=== PATIENT | female | born 1935 | race Caucasian/White ===

== ENCOUNTER 2019-04-04 14:01 | Emergency (ER) | payer MEDICARE, SELFPAY ==
[2019-04-04 14:07] VITALS: PULSE 73; RESP 30; TEMP 36.5; O2SAT 97
--- NOTE | 2019-04-04 14:15 | ECG_ITS ---
Measurements Intervals [place] Rate: 69 P: 35 VT: 160 QRS: -17 QRSD: 89 T: 11 QT: 396 QTc: 426 Interpretive Statements SINUS RHYTHM CANNOT RULE OUT SEPTAL INFARCT, AGE INDETERMINATE BASELINE ARTIFACT- I, III ABNORMAL ECG Electronically Signed On 04-04-2019 19:40:24 FARM LOAN REPRESENTATIVE by Akil De Oliveira D.O.
--- NOTE | 2019-04-04 14:23 | ED.DIZZY ---
HPI - Dizziness General Chief Complaint: Dizziness Stated Complaint: dizzy Time Seen by Provider: 04/04/19 14:19 Source: patient Mode of arrival: ambulatory Limitations: no limitations History of Present Illness HPI Narrative: Pt is an 83 y/o female who presents to the ED with c/o dizziness that started at 10AM. Pt states that she has a H/o vertigo and is Rx Meclizine. She notes that normally when her dizziness starts it is alleviated with the meclizine. Today, she took her meclizine at 10AM with no relief. She notes that the room is spinning. Pt states that her dizziness is aggravated when she moves her head and it is alleviated when her head is still. Pt denies RUELAS, nausea, ABD pain, CP, or chest discomfort. MD elicited complaint: dizziness Pertinent past history: other (vertigo) Onset (ago): hour(s) (4) Timing: sudden onset Severity: similar to previous episodes Description: room spinning History of similar symptoms: Yes Exacerbating factors: movement/ambulation Relieving factors: remaining still Associated symptoms: denies other symptoms Related Data Home Medications Medication Instructions Recorded Confirmed alprazolam 01/26/19 citalopram mg 01/26/19 lamotrigine 01/26/19 meclizine mg 01/26/19 Allergies Allergy/AdvReac Type Severity Reaction Status Date / Time ibuprofen Allergy Unknown Unknown Verified 01/26/19 17:17 ALLERGY MEDICINES Allergy Unknown SENSITIVITY Uncoded 01/10/14 10:34 Review of Systems Review of Systems: All systems reviewed & are unremarkable except as noted in HPI and below Cardiovascular: Cardiovascular: Denies chest pain and Denies other (chest discomfort) Gastrointestinal: Gastrointestinal: Denies abdominal pain and Denies nausea Neurologic: Reports vertigo, Reports dizziness and Denies headache(s) PMFSH Past Medical History Medical History Anxiety Depression Hypoglycemia Vertigo Surgical History Surgical History Hx of tympanostomy tubes Social History Social History Smoking status: Never smoker Alcohol intake: never Substance use: never Gender identity (if verbalized by the patient): Female Exam Narrative: Exam Narrative: GENERAL: Well-appearing, well-nourished, and in no acute distress. HEAD: Normocephalic, atraumatic. EYES: PERRLA and EOMI. ENT: Nares clear, no rhinorrhea or epistaxis. Mucous membranes moist. NECK: Supple. CHEST: Clear to auscultation. No respiratory distress. HEART: Regular rate and rhythm. No murmur heard. Normal peripheral pulses. ABDOMEN: Soft, nontender, nondistended, normal active bowel sounds. EXTREMITIES: Normal range of motion. No edema. SKIN: Warm, dry, no rash. NEURO: No focal deficits. Alert and oriented x3. PSYCH: Normal mood and affect. Course Course Emergency Course: Patient states she is feeling slightly better her dizziness has markedly improved, I discussed lab and EKG findings with the patient and the family. She does feel comfortable going home. Vital Signs Vital signs: Vital Signs Temperature 36.5 C 04/04/19 14:07 Pulse Rate 73 04/04/19 14:07 Respiratory Rate 30 H 04/04/19 14:07 Pulse Oximetry 97 04/04/19 14:07 Temperature 36.5 C 04/04/19 14:07 Pulse Rate 73 04/04/19 14:07 Respiratory Rate 30 H 04/04/19 14:07 Pulse Oximetry 97 04/04/19 14:07 MDM - Dizziness Lab Data Result diagrams: 04/04/19 14:34 04/04/19 14:34 Labs: Lab Results 04/04/19 04/04/19 Range/Units 14:34 14:34 WBC 7.0 (4.5-10.0) K/mm3 RBC 4.55 (4.2-5.4) M/mm3 Hgb 13.1 (12.0-15.0) g/dL Hct 41.6 (37.0-47.0) % MCV 91.4 (80-100) fl MCH 28.8 (26-34) pg MCHC 31.5 L (32-36) g/dl RDW 13.2 (11.5-14.5) % Plt Count 196 (150-375) k/mm3 MPV 10.7 H (7.4-10.4) fl Immature Gran % (Auto) 0.1 (0-
[2019-04-04 14:42] LABS: Basophils Percent Auto 0.6 % (0.2-1.2); Eosinophils Absolute Auto 0.2 K/mm3 (0-0.3); Eosinophils Percent Auto 2.6 % (0-4.4); Hematocrit 41.6 % (37.0-47.0); Hemoglobin 13.1 g/dL (12.0-15.0); Immature Granulocyte Absolute 0.01 K/mm3 (0.00-0.031); Immature Granulocyte Percent A 0.1 % (0-0.5); Lymphocytes Absolute Auto 2.35 K/mm3 (0.9-3.2); Lymphocytes Percent Auto 33.6 % (18.3-44.2); Mean Corpuscular HGB Conc 31.5 g/dl (32-36); Mean Corpuscular Hemoglobin 28.8 pg (26-34); Mean Corpuscular Volume 91.4 fl (80-100); Mean Platelet Volume 10.7 fl (7.4-10.4); Monocytes Absolute Auto 0.5 K/mm3 (0.1-0.6); Monocytes Percent Auto 6.7 % (2.6-8.5); Neutrophils Absolute Auto 3.9 K/mm3 (1.3-6.7); Neutrophils Percent Auto 56.4 % (45.5-73.1); Platelet Count Result 196 k/mm3 (150-375); Red Blood Count 4.55 M/mm3 (4.2-5.4); Red Cell Distribution Width 13.2 % (11.5-14.5)
[2019-04-04] MEDS: SODIUM CHLORIDE 0.9% IV 1,000 ML 999 ML IV CONT (14:44)
[2019-04-04 14:53] LABS: Blood Urea Nitrogen 22 mg/dL (7-17); Calcium 9.2 mg/dL (8.4-10.2); Carbon Dioxide 25 mmol/L (22-30); Chloride 99 mmol/L (98-107); Estimated CRCL calculation 37 ml/min; Estimated Glomerular Filt Rate 60; Glucose 100 mg/dL (65-105); Potassium 4.1 mmol/L (3.4-5.0); Sodium 136 mmol/L (137-145)
[2019-04-04] MEDS: LORAZEPAM INJ 2 MG/ML VIAL 0.5 MG IV PUSH (15:03)
[2019-04-04] MEDS: MECLIZINE HCL 25 MG TABLET PO (15:03)
[2019-04-04 15:05] LABS: Troponin I < 0.012 ng/mL (0.000-0.034)
== END 2019-04-04 15:50 | disposition home or self-care (01) ==
PROVIDERS: Emergency Provider Family Medicine; PCP Family Medicine
DX: H81.10 Benign paroxysmal vertigo, unspecified ear (principal); F41.9 Anxiety disorder, unspecified; F32.9 Major depressive disorder, single episode, unspecified; R94.31 Abnormal electrocardiogram [ECG] [EKG]
CPT/HCPCS: 36415; 80048; 84484; 85025; 93005; 96361; 96374; 99284; A9270; J2060; J7030

== ENCOUNTER 2019-09-16 10:07 | Emergency (ER) | payer MEDICARE, SELFPAY ==
--- NOTE | ~2019-09-16 | XR_ITS ---
EXAMINATION: XR foot RT min 3V DATE: 09/16/2019 10:39 INDICATION: Right foot injury and pain. TECHNIQUE: 4 views of right foot were obtained. COMPARISON: Right foot radiographs 09/22/2017 FINDINGS: Bone alignment is normal. There is an old healed fracture deformity of base of fifth metata rsal. There is an avulsion fracture at medial base of fifth middle phalanx. There is an avulsion frac ture at lateral aspect of head of fifth proximal phalanx. There is mild osteoarthritis of first metat arsophalangeal joint and some of the interphalangeal joints and midfoot joints. There is moderate ost eoarthritis of the naviculocuneiform joints and third tarsometatarsal joint. There are enthesophytes at the posterior and plantar aspects of calcaneal tuberosity. IMPRESSION: 1. Avulsion fractures about fifth proximal interphalangeal joint. 2. Polyarticular osteoarthritis. Reviewed, dictated and finalized at location A.
[2019-09-16 10:27] VITALS: BP 109/70; PULSE 84; RESP 18; TEMP 36.6; O2SAT 96
--- NOTE | 2019-09-16 10:49 | ED.LOWEXIN ---
HPI - Extremity Injury (Lower) General Chief Complaint: Extremity Injury, Lower Stated Complaint: right foot injury Time Seen by Provider: 09/16/19 10:49 Source: patient Mode of arrival: ambulatory Limitations: no limitations History of Present Illness HPI Narrative: Joseline Wright is a 84 yo female with PMH of anxiety, depression, arthritis, who [place], no pain at the time but this morning woke up and has right ankle and foot pain Related Data Home Medications Medication Instructions Recorded Confirmed alprazolam 01/26/19 citalopram mg 01/26/19 lamotrigine 01/26/19 meclizine mg 01/26/19 Allergies Allergy/AdvReac Type Severity Reaction Status Date / Time ibuprofen Allergy Unknown Unknown Verified 01/26/19 17:17 ALLERGY MEDICINES Allergy Unknown SENSITIVITY Uncoded 01/10/14 10:34 Review of Systems Review of Systems: Narrative: CONSTITUTIONAL: Denies fever, chills, sweats. EYES: Denies visual changes, redness, discharge. ENT: Denies rhinorrhea, congestion, sore throat, otalgia. CARDIOVASCULAR: Denies chest pain, palpitations, edema. RESPIRATORY: Denies dyspnea, wheezing, cough GASTROINTESTINAL: Denies abdominal pain, nausea, vomiting, diarrhea. GENITOURINARY: Denies dysuria, hematuria, abnormal discharge SKIN: Denies rash or itching. NEUROLOGIC: Denies numbness, or focal weakness. PSYCHIATRIC: Denies anxiety or depression. Extremity: Right bottom of foot painful and swollen PMFSH Past Medical History Medical History Anxiety Depression Hypoglycemia Vertigo Surgical History Surgical History Hx of tympanostomy tubes Social History Social History Smoking status: Never smoker Alcohol intake: never Substance use: never Gender identity (if verbalized by the patient): Female Comments At time of signature, I agree with nursing past medical, surgical, social and family history. There is no relevant family history pertinent to the presenting complaint. Exam Narrative: Exam Narrative: GENERAL: This is a well-nourished, well-developed patient, in mild distress. HEAD: normocephalic, atraumatic. EYES: Sclera clear/white. Vision is grossly intact. EARS: External ears normal, . Hearing grossly intact. NOSE: External nose normal without nasal discharge, THROAT: Mucous membranes moist, NECK: Neck supple, CARDIOVASCULAR: Regular rate and rhythm without murmurs, gallops, or rubs. RESPIRATORY: Clear to auscultation. Breath sounds equal bilaterally. No wheezes, rales, or rhonchi. GASTROINTESTINAL: Abdomen soft, SKIN: warm, intact with no suspicious lesions or rash, good texture and turgor. NEURO: awake, alert, and oriented to person, place and time. There were no obvious focal neurologic abnormalities. Steady gait EXTREMITIES: Normal range of motion. Right foot swelling with no ecchymosis, pain in the forefoot, more pain on solar side of toes and forefoot BACK: Nontender without deformity Course Course Emergency Course: X-ray of right foot: Results are avulsion fracture of fifth proximal interphalangeal joint, polyarticular osteoarthritis Keep toe and placed in postop shoe, Naprosyn for pain, even directions on rice, follow-up with podiatry Vital Signs Vital signs: Vital Signs Temperature 97.8 F 09/16/19 10:27 Pulse Rate 84 09/16/19 10:27 Respiratory Rate 18 09/16/19 10:27 Blood Pressure 109/70 09/16/19 10:27 Pulse Oximetry 96 09/16/19 10:27 Temperature 97.8 F 09/16/19 10:27 Pulse Rate 84 09/16/19 10:27 Respiratory Rate 18 09/16/19 10:27 Blood Pressure 109/70 09/16/19 10:27 Pulse Oximetry 96 09/16/19 10:27 MDM - Extremity Injury (Lower) Differential Diagnosis Differential diagnosis: Likely puncture wound of foot, fracture of toe and other Dis
== END 2019-09-16 11:30 | disposition home or self-care (01) ==
PROVIDERS: Emergency Provider Nurse Practitioner; PCP Family Medicine
DX: S92.511A Displaced fracture of proximal phalanx of right lesser toe(s), initial encounter for closed fracture (principal); W19.XXXA Unspecified fall, initial encounter; F41.9 Anxiety disorder, unspecified; F32.9 Major depressive disorder, single episode, unspecified
CPT/HCPCS: 73630; 99214; G0463

== ENCOUNTER 2019-10-31 09:36 | Emergency (ER) | payer MEDICARE, SELFPAY ==
--- NOTE | ~2019-10-31 | CT_ITS ---
EXAMINATION: CT brain wo con DATE: 10/31/2019 10:32 INDICATION: Head injury. TECHNIQUE: Computed tomography (CT) of the head was performed without intravenous contrast. The mA wa s adjusted according to patient size. Iterative reconstruction technique was employed. The dose-lengt h product was 605.33 mGy-cm. COMPARISON: Head CT 01/10/2014 FINDINGS: There is no intracranial hemorrhage, acute infarction, or abnormal intracranial mass lesion . The ventricles are normal in size. There are likely changes of ocular lens replacement surgeries. T here is mild mucosal thickening in the paranasal sinuses. The mastoid air cells are normal. There is a right posterior scalp hematoma. IMPRESSION: 1. Normal brain. Reviewed, dictated and finalized at location B. IMPRESSION: 1. Normal brain.
--- NOTE | ~2019-10-31 | CT_ITS ---
EXAMINATION: CT cervical spine wo con DATE: 10/31/2019 10:32 INDICATION: Head injury. TECHNIQUE: Computed tomography (CT) of the cervical spine was performed without intravenous contrast. Automated exposure control and iterative reconstruction technique were employed. The dose-length pro duct was 183.23 mGy-cm. COMPARISON: None FINDINGS: There is 2 mm retrolisthesis of C3 on C4. Vertebral body heights are normal. There is sever beverly decreased disc height at C3-C4 and C4-C5, moderately decreased disc height at C5-C6, and severely decreased disc height at C6-C7. There is an 8 mm aggressive lytic lesion in C5 spinous process. Scle rotic lesions in right third rib and right T3 transverse process are likely benign bone islands. The following disc levels are specifically discussed: C2-C3: There is no uncovertebral joint osteoarthritis. There is severe bilateral facet joint osteoart hritis. There is mild bilateral neural foraminal stenosis. There is no central canal stenosis. C3-C4: There is severe bilateral uncovertebral joint osteoarthritis. There is severe right and modera te left facet joint osteoarthritis. There is no neural foraminal stenosis. There is mild central donaldo l stenosis. C4-C5: There is severe bilateral uncovertebral joint osteoarthritis. There is moderate right and mild left facet joint osteoarthritis. There is no neural foraminal stenosis. There is mild central canal stenosis. C5-C6: There is severe right and mild left uncovertebral joint osteoarthritis. There is mild right fa cet joint osteoarthritis. There is mild bilateral neural foraminal stenosis. There is no central donaldo l stenosis. C6-C7: There is severe bilateral uncovertebral joint osteoarthritis. There is mild right and moderate left facet joint osteoarthritis. There is no neural foraminal stenosis. There is no central canal st enosis. C7-T1: There is no uncovertebral joint osteoarthritis. There is severe right and mild left facet join t osteoarthritis. There is no neural foraminal stenosis. There is no central canal stenosis. IMPRESSION: 1. No fracture. 2. Severe cervical spondylosis. 3. Aggressive lytic lesion in C5 transverse process, consistent with multiple myeloma versus metastat ic disease. Reviewed, dictated and finalized at location B. IMPRESSION: 1. No fracture. 2. Severe cervical spondylosis. 3. Aggressive lytic lesion in C5 transverse process, consistent with multiple m yeloma versus metastatic disease.
[2019-10-31 09:47] VITALS: BP 123/75; PULSE 80; RESP 20; TEMP 37.2; O2SAT 96
--- NOTE | 2019-10-31 10:05 | ED.HEATRA ---
HPI - Head Injury General Chief complaint: Head Injury Stated complaint: Fall, Hit Head Time Seen by Provider: 10/31/19 09:43 Source: patient Mode of arrival: ambulatory Limitations: no limitations History of Present Illness HPI Narrative: This patient is an 84 year old female who presents for evaluation of a head injury. PAtient states she was running this morning and she tripped in her house. THis caused her to hit her head on the wall. She denies LOC but she was she was having severe head pain. She reports chronic dizziness. She is worried about having intracranial hemorrhage. She denies taking anticoagulation. Related Data Home Medications Medication Instructions Recorded Confirmed alprazolam 01/26/19 lamotrigine 01/26/19 citalopram 20 mg tablet 20 mg PO DAILY 10/30/19 lamotrigine 25 mg tablet 75 mg PO DAILY 10/30/19 Allergies Allergy/AdvReac Type Severity Reaction Status Date / Time No Known Allergies Allergy Verified 10/31/19 09:50 Review of Systems Review of Systems: All systems reviewed & are unremarkable except as noted in HPI and below Constitutional: Constitutional: Denies chills and Denies fever(s) Neurologic: Reports dizziness, Reports headache(s), Denies focal weakness and Denies numbness PMFSH Social History Social History Smoking status: Never smoker Alcohol intake: never Substance use: never Gender identity (if verbalized by the patient): Female Exam Const: General: alert Orientation/consciousness: patient oriented x3 HENMT: Head: normocephalic and scalp tenderness (right parietal punctate wound with mild bleeding. scalp swelling present) Face and sinus: face symmetric Mouth: Yes lip normal and Yes tongue normal Throat: uvula midline Neck: Other: mild posterior neck tenderness Chest: Chest palpation & inspection: normal inspection of the chest and no tenderness Resp: Effort & Inspection: normal respiratory effort and no retractions Auscultation: clear to auscultation bilaterally Cardio: Rate: regular rate Rhythm: regular rhythm Heart sounds: no murmurs GI: GI Palp: Yes Soft to palpation, No Tenderness to palpation present (GI), No Guarding due to palpation present (GI) and No Rigid due to palpation Neuro: General: patient oriented x3 and moves all extremities Extrem: General: normal to inspection Course Consultations Consultation #1: I discussed CT spine findings with patient and Dr. Parsons. He will follow up with patient regarding lytic lesion. She does have past history of breast cancer s/p mastectomy Date: 10/31/19 Time: 11:16 Vital Signs Vital signs: Vital Signs Temperature 99.0 F 10/31/19 09:47 Pulse Rate 80 10/31/19 09:47 Respiratory Rate 20 10/31/19 09:47 Blood Pressure 123/75 10/31/19 09:47 Pulse Oximetry 96 10/31/19 09:47 Temperature 99.0 F 10/31/19 09:47 Pulse Rate 80 10/31/19 11:54 Respiratory Rate 17 10/31/19 11:54 Blood Pressure 142/84 H 10/31/19 11:54 Pulse Oximetry 98 10/31/19 11:54 MDM - Head Injury Imaging Data Radiologist's impression: ITS Impressions Head CT 10/31/19 10:33 IMPRESSION: 1. Normal brain. Cervical Spine CT 10/31/19 10:35 IMPRESSION: 1. No fracture. 2. Severe cervical spondylosis. 3. Aggressive lytic lesion in C5 transverse process, consistent with multiple myeloma versus metastatic disease. Discharge Plan Discharge Clinical Impression: CHI (closed head injury), Bone lesion Patient Disposition: Home, Self-Care Condition: Stable Instructions: Head Injury (ED) Additional Instructions: Follow up with your primary care physician regarding your abnormal spine lesion. You will need further assessment. Prescriptions: No Action lamotrigine 25 mg tablet RF: 0 alprazolam 0.25 mg tablet RF: 0 lamotrigine 25 mg tablet 75 mg PO DAILY RF: 0 roman
[2019-10-31] MEDS: TETANUS,DIPHTHERIA,AC PERTUSSIS ADULT (0.5 ML) BOOSTRIX IM (11:03)
[2019-10-31 11:54] VITALS: BP 142/84; PULSE 80; RESP 17; O2SAT 98
== END 2019-10-31 12:00 | disposition home or self-care (01) ==
PROVIDERS: Emergency Provider General Practice; PCP Family Medicine
DX: S00.91XA Abrasion of unspecified part of head, initial encounter (principal); M89.9 Disorder of bone, unspecified; M47.812 Spondylosis without myelopathy or radiculopathy, cervical region; W01.0XXA Fall on same level from slipping, tripping and stumbling without subsequent striking against object, initial encounter; Z23 Encounter for immunization
CPT/HCPCS: 70450; 72125; 90471; 90715; 99284

== ENCOUNTER → 2019-11-20 13:52 | Outpatient (CLI) | payer MEDICARE, SELFPAY ==
--- NOTE | ~2019-11-20 | XR_ITS ---
EXAMINATION: XR chest 2V 11/20/2019 14:15 INDICATION: Shortness of breath PROCEDURE: PA and lateral views of the chest COMPARISON: Comparison to multiple prior studies sequentially, with oldest reviewed study dated 11/2004. FINDINGS: The lungs are clear. The lungs are hyperinflated which is consistent with, but not diagnost ic of chronic obstructive pulmonary disease. The cardiomediastinal silhouette is within normal limit s. There are no pleural effusions. There is no pneumothorax suspected. IMPRESSION: 1: NO ACUTE CARDIOPULMONARY DISEASE. Reviewed, dictated and finalized at location B.
== END ==
PROVIDERS: PCP Family Medicine; Visit Provider Family Medicine
DX: R06.02 Shortness of breath (principal)
CPT/HCPCS: 71046

== ENCOUNTER 2019-11-30 10:48 | Outpatient (NON) | payer MEDICARE, SELFPAY ==
[2019-12-01 02:12] LABS: SARS-CoV-2 RNA PCR Negative
== END 2019-11-30 10:49 ==
PROVIDERS: PCP Family Medicine; Visit Provider Family Medicine
DX: R09.89 Other specified symptoms and signs involving the circulatory and respiratory systems (principal); Z20.828 Contact with and (suspected) exposure to other viral communicable diseases
CPT/HCPCS: 87635; C9803; U0003

== ENCOUNTER → 2020-02-25 16:32 | Outpatient (CLI) | payer MEDICARE, SELFPAY ==
--- NOTE | ~2020-02-25 | XR_ITS ---
XR lumbar spine 2-3V 02/25/2020 18:00 Indication: Low back pain Procedure: 3 views lumbar spine Comparison: Findings: There is disc narrowing at L3-4, L4-5 and L5-S1. There are facet degenerative changes at th jase levels. Osteopenia. Stable calcified fibroid in the uterus. There is stable degenerative spondylo listhesis at L4-5. There is mild levocurvature of the brachial lumbar spine. Sacral foramen are symme tric. Impression: 1: Severe lumbar spondylosis without significant interval change. Reviewed, dictated and finalized at location A. DCAST TECHNICIAN Impression: 1: Severe lumbar spondylosis without significant interval change.
== END ==
PROVIDERS: PCP Family Medicine; Visit Provider Family Medicine
DX: M47.896 Other spondylosis, lumbar region (principal)
CPT/HCPCS: 72100

== ENCOUNTER 2020-06-17 16:06 | Outpatient (CLI) | payer MEDICARE, SELFPAY ==
--- NOTE | ~2020-06-17 | XR_ITS ---
XR chest 2V DATE: 06/17/2020 16:26 INDICATION: Shortness of breath, wheezing TECHNIQUE: PA and lateral views COMPARISON: 11/20/2019 PA and lateral chest FINDINGS: Normal heart size. No hilar or mediastinal enlargement. Aortic arch calcification. No pulmonary infiltrate or consolidation, pleural effusion or pulmonary vascular congestion or pneumo thorax. Diffuse osteopenia. Mild thoracic and lumbar scoliosis. Degenerative change of the thoracic spine. Status post left mastectomy and left axillary node dissection. IMPRESSION: Status post left mastectomy and left axillary node dissection Aortic atherosclerosis No active cardiopulmonary disease Diffuse osteopenia Reviewed, dictated and finalized at location A.
--- NOTE | 2020-06-17 16:29 | ECG_ITS ---
Measurements Intervals [place] Rate: 77 P: 53 [place]: 154 QRS: 32 QRSD: 88 T: 31 QT: 383 QTc: 433 Interpretive Statements SINUS RHYTHM FREQUENT VENTRICULAR PREMATURE COMPLEXES ABNORMAL ECG Electronically Signed On 06-17-2020 16:58:11 CDT by Akil De Oliveira D.O.
== END 2020-06-17 16:07 | disposition home or self-care (01) ==
LOC: ANHIMG 16:10
PROVIDERS: PCP Family Medicine; Visit Provider Physician Assistant Medical
DX: I49.9 Cardiac arrhythmia, unspecified (principal); R06.2 Wheezing; I70.0 Atherosclerosis of aorta; M85.88 Other specified disorders of bone density and structure, other site
CPT/HCPCS: 71046; 93005

== ENCOUNTER 2020-06-25 10:38 | Outpatient (CLI) | payer MEDICARE, SELFPAY ==
--- NOTE | 2020-07-08 12:24 | WPDHOLTEREM ---
Holter/Event Monitor Holter/Event Monitor Date of procedure: 07/01/20 Procedure Type: 48 hour holter monitor Indications: PVC Conclusion: 1. 48 hour holter monitor on 07/01/20. 2. Predominant rhythm is sinus rhythm. HR range 67-118 bpm; average HR 86 bpm. 3. There are 56 premature supraventricular complexes and 3 supraventricular couplets. There are 3 episodes of atrial tachycardia, fastest at 167 bpm and longest lasting 5 beats. 4. There are 25,435 premature ventricular complexes, 439 premature ventricular couplets, 2 ventricular triplets, 3,732 ventricular bigeminy and 25 ventricular trigeminy. No ventricular tachycardia. 5. No sinoatrial or atrioventricular blocks. No significant pauses greater than 2 seconds. 6. Patient reports symptoms of shakiness, lightheadedness, and tiredness which demonstrate sinus rhythm, HR range 76-101 bpm with PVC's each time.
== END 2020-06-25 10:39 | disposition home or self-care (01) ==
PROVIDERS: PCP Family Medicine; Visit Provider Physician Assistant Medical
DX: I49.3 Ventricular premature depolarization (principal); I49.9 Cardiac arrhythmia, unspecified
CPT/HCPCS: 93225; 93226

== ENCOUNTER 2020-07-07 14:36 | Outpatient (CLI) | payer MEDICARE, SELFPAY ==
--- NOTE | 2020-07-07 16:40 | WPDPFTINT ---
PFT Procedure Performed PFT Procedure Performed Spirometry with Pre/Post Bronchodilator Plethysmography (Lung Vol) Diffusing Cap (DLCO) Flow Vol Loop PFT Interpretation This is a pulmonary function test with pre and post-bronchodilator spirometry, plethysmography and diffusing capacity. The test was performed and results interpreted in accordance with the 2019 and 2005 ATS/ERS Task Force guidelines respectively using the Global Lung Function Initiative-2012 reference equations. Patient demonstrated good effort and cooperation. Reproducibility criteria were met. The quality of the pre bronchodilator spirometry maneuver was Grade E and post bronchodilator spirometry maneuver was Grade A. Findings: Spirometry: There is decreased maximal expiratory airflow at all lung volumes with concave expiratory flow tracing. The pre bronchodilator FVC is 2.12 L, 86% predicted. The pre bronchodilator FEV1 is 1.29 L, 70% predicted. The FEV1: FVC ratio 61%. The post bronchodilator FVC is 2.25 L, representing a 6% increase. The post bronchodilator FEV1 is 1.24 L, representing a 4% decrease. Plethysmography: The total lung capacity is 4.94 L, 97% predicted. Functional residual capacity is 3.73 L, 127% predicted. The residual volume is 2.83 L, 114% predicted. Diffusing capacity: The absolute diffusion capacity is 13.3, 70% predicted. The diffusing capacity corrected for alveolar volume is 3.75, 92% predicted. Impression: The pre bronchodilator spirometry was not reproducible but with combined with the reproducible post bronchodilator spirometry there is a mild obstructive abnormality without significant improvement after inhaling a single dose of albuterol. the lung volumes are normal. The diffusing capacity is normal. There are no prior studies for comparison
== END 2020-07-07 14:37 | disposition home or self-care (01) ==
LOC: ANHPFT 14:41
PROVIDERS: PCP Family Medicine; Visit Provider Physician Assistant Medical
DX: R06.2 Wheezing (principal); R09.89 Other specified symptoms and signs involving the circulatory and respiratory systems
CPT/HCPCS: 94060; 94726; 94729

== ENCOUNTER 2020-07-24 16:55 | Observation (INO) | payer MEDICARE, SELFPAY ==
--- NOTE | ~2020-07-24 | XR_ITS ---
EXAMINATION: XR chest 2V DATE: 07/24/2020 17:58 INDICATION: Heart palpitations TECHNIQUE: PA and lateral views of the chest are obtained. COMPARISON: 06/17/2020 FINDINGS: The lungs are free of acute opacities. There is no pleural effusion or pneumothorax. The ca rdiomediastinal silhouette is normal. There is moderate thoracic spondylosis. There are changes of le ft mastectomy and left axillary lymph node dissection. IMPRESSION: 1. No acute cardiopulmonary abnormality. Reviewed, dictated and finalized at location A.
[2020-07-24 16:53] VITALS: BP 135/84; PULSE 93; RESP 16; TEMP 36.6; O2SAT 94
--- NOTE | 2020-07-24 17:07 | ECG_ITS ---
Measurements Intervals [employer] Rate: 93 P: 34 CT: 157 QRS: -8 QRSD: 102 T: 95 QT: 369 QTc: 461 Interpretive Statements SINUS RHYTHM VENTRICULAR BIGEMINY BASELINE ARTIFACT- II, V2-V6 ABNORMAL ECG Electronically Signed On 07-25-2020 6:34:37 CDT by Akil De Oliveira D.O.
--- NOTE | 2020-07-24 17:17 | ED.CHESTPAIN ---
HPI - Chest Pain General Chief Complaint: Chest Pain Stated Complaint: CP Time Seen by Provider: 07/24/20 17:13 Source: patient Mode of arrival: ambulatory Limitations: no limitations History of Present Illness HPI narrative: Patient is an 85-year-old female complaining of chest pain, tightness, midsternal, nonradiating, 7 out of 10, lasted for approximately 15 minutes, and now resolved, started prior to arrival. Patient denies any shortness of breath, abdominal pain, nausea, vomiting, diaphoresis, fever or chills. Patient states that she is scheduled to see Dr. Gutierrez tomorrow due to her palpitations. Related Data Home Medications Medication Instructions Recorded Confirmed cholecalciferol (vitamin D3) 75 150 mcg PO DAILY tablet 03/20/20 04/24/20 mcg (3,000 unit) tablet magnesium 250 mg tablet 750 mg PO DAILY tablet 03/20/20 04/24/20 alprazolam [Xanax] 0.125 mg PO TID 07/24/20 Allergies Allergy/AdvReac Type Severity Reaction Status Date / Time No Known Allergies Allergy Verified 07/24/20 17:03 Review of Systems Review of Systems: All systems reviewed & are unremarkable except as noted in HPI and below Constitutional: Constitutional: Denies body ache(s), Denies chills, Denies excessive sweating, Denies fatigue, Denies fever(s), Denies headache(s), Denies lethargy, Denies malaise, Denies weakness and Denies weight loss Eyes: Eyes: Denies blurry vision, Denies change in vision and Denies loss of vision ENT: Denies dizziness, Denies ear discharge, Denies headache(s), Denies lip swelling, Denies epistaxis, Denies nasal congestion, Denies neck pain, Denies throat swelling and Denies tongue swelling Cardiovascular: Cardiovascular: Denies diaphoresis, Denies rapid heart rate, Denies edema, Denies irregular heart rhythm, Denies lightheadedness, Denies palpitations, Denies dyspnea and Denies dyspnea on exertion Respiratory: Respiratory: Denies chest congestion, Denies cough, Denies hemoptysis, Denies dyspnea and Denies dyspnea on exertion Gastrointestinal: Gastrointestinal: Denies abdominal pain, Denies melena, Denies hematochezia, Denies diarrhea, Denies nausea, Denies vomiting and Denies hematemesis Musculoskeletal: Musculoskeletal: Denies abnormal gait, Denies deformity, Denies joint swelling, Denies limited range of motion, Denies neck pain and Denies numbness Neurologic: Denies Abnormal speech present, Denies abnormal gait, Denies confusion, Denies dizziness, Denies headache(s), Denies focal weakness, Denies loss of vision, Denies numbness, Denies Other visual disturbances, Denies Sensory deficit (Neuro) and Denies weakness Psychiatric: Psychiatric: Denies confusion, Denies depression, Denies auditory hallucinations, Denies homicidal ideation and Denies suicidal ideation Endocrine: Endocrine: Denies cold intolerance, Denies excessive sweating, Denies fatigue, Denies heat intolerance and Denies palpitations Hematologic/Lymphatic: Hematologic/Lymphatic: Denies easy bleeding and Denies easy bruising Allergic/Immunologic: Allergic/Immunologic: Denies lip swelling, Denies throat swelling and Denies tongue swelling PMFSH Past Medical History Medical History Anxiety Anxiety disorder, unspecified BMI 25.0-25.9,adult Depression Hypoglycemia Low vitamin D level Vertigo Surgical History Surgical History Hx of tympanostomy tubes Family History Family History Father Stomach ulcer Mother OCD (obsessive compulsive disorder) Sibling No problems noted. Social History Social History Smoking status: Never smoker Second hand tobacco smoke exposure: No Alcohol intake: never Substance use: never Substance use type: does not use Additional occupation/education comment
[2020-07-24 17:38] LABS: Basophils Absolute Auto 0.1 K/mm3 (0.0-0.1); Basophils Percent Auto 0.5 % (0.2-1.2); Eosinophils Absolute Auto 0.3 K/mm3 (0-0.3); Hemoglobin 14.5 g/dL (12.0-15.0); Immature Granulocyte Absolute 0.02 K/mm3 (0.00-0.031); Immature Granulocyte Percent A 0.2 % (0-0.5); Lymphocytes Absolute Auto 3.49 K/mm3 (0.9-3.2); Lymphocytes Percent Auto 36.4 % (18.3-44.2); Mean Corpuscular Hemoglobin 29.5 pg (26-34); Mean Corpuscular Volume 89.4 fl (80-100); Mean Platelet Volume 10.4 fl (7.4-10.4); Monocytes Absolute Auto 0.7 K/mm3 (0.1-0.6); Monocytes Percent Auto 6.9 % (2.6-8.5); Neutrophils Absolute Auto 5.1 K/mm3 (1.3-6.7); Platelet Count Result 214 k/mm3 (150-375); Red Blood Count 4.92 M/mm3 (4.2-5.4); Red Cell Distribution Width 13.4 % (11.5-14.5); White Blood Count 9.6 K/mm3 (4.5-10.0)
[2020-07-24 17:48] LABS: Prothrombin Time 13.4 Seconds (11.1-14.7)
[2020-07-24 17:49] LABS: Partial Thromboplastin Time 28.1 SECONDS (22.3-36.8)
[2020-07-24 17:51] LABS: D Dimer 0.33 ug/mL (<0.48)
[2020-07-24 17:54] LABS: Anion Gap 7 mmol/L (8-16); Blood Urea Nitrogen 23 mg/dL (7-17); Calcium 9.2 mg/dL (8.4-10.2); Carbon Dioxide 26 mmol/L (22-30); Chloride 105 mmol/L (98-107); Estimated CRCL calculation 60 ml/min; Estimated Glomerular Filt Rate > 60; Glucose 99 mg/dL (65-105); Potassium 3.9 mmol/L (3.4-5.0); Sodium 138 mmol/L (137-145)
[2020-07-24 18:08] LABS: Troponin I < 0.012 ng/mL (0.000-0.034)
[2020-07-24 18:17] VITALS: BP 106/72; PULSE 95; RESP 16; O2SAT 95
[2020-07-24] MEDS: ASPIRIN 81 MG CHEWABLE TABLET 324 MG PO (18:17)
[2020-07-24 19:22] VITALS: BP 115/74; PULSE 85; RESP 18; O2SAT 100
[2020-07-24 20:37] LABS: Troponin I < 0.012 ng/mL (0.000-0.034)
[2020-07-24 21:07] VITALS: BP 127/57; PULSE 90; RESP 18; O2SAT 96
[2020-07-24 21:35] LABS: Glucose Point of Care 165 mg/dl (65-105)
[2020-07-24 21:49] VITALS: BMI 26.4
--- NOTE | 2020-07-24 21:50 | ADMGEN ---
This patient, Joseline Rueda, was admitted to Intensive Care Unit-5. Patient/family oriented to hospital policies and general routines including ID bracelet, bed and alarms, visiting hours, pain management, procedures, bathroom and other care routines, personal items, smoking policy, room service/diet, and visiting hours. Information on how to activate the Rapid Response Team has been discussed. Patient/Family are encouraged to report perceived risks to care and to ask questions if they do not understand what they are told or what they should do.
[2020-07-24 22:00] VITALS: PULSE 89
[2020-07-24 22:09] VITALS: BP 113/65; PULSE 85; RESP 19; TEMP 36.6; O2SAT 96
[2020-07-24 23:28] LABS: Troponin I < 0.012 ng/mL (0.000-0.034)
--- NOTE | 2020-07-24 23:34 | PM.IMHP ---
H&P: HPI History of Present Illness Date/Time: 07/24/20 23:34 Chief Complaint: Chest pain Review of Systems Review of Systems: Narrative: 12 systems were reviewed with pertinent positives and negatives per HPI. Except as documented in the HPI, all other systems were reviewed and are negative. [facility] Past Medical History Medical History (Updated 07/24/20 @ 23:46 by Jocelyn Colvin DO) Anxiety Anxiety disorder, unspecified BMI 25.0-25.9,adult COPD (chronic obstructive pulmonary disease) Mild obstructive abnormality without change in diffusion capacity noted on PFTs July 2020 Depression Hypoglycemia Memory loss, short term PVCs (premature ventricular contractions) Vertigo Vitamin D deficiency Surgical History Surgical History (Updated 07/24/20 @ 23:46 by Jocelyn Colvin DO) Hx of tympanostomy tubes (~2015) Right Family History Family History (Updated 07/24/20 @ 22:07 by Annmarie Ham RN) Father Stomach ulcer Mother OCD (obsessive compulsive disorder) Uterine cancer Bladder cancer Sibling No problems noted. 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 Gender identity (if verbalized by the patient): Female Spiritual care concerns: Yes (Sikhism) Meds Home Medications and Allergies Home Medications Medication Instructions Recorded Confirmed Type cholecalciferol (vitamin D3) 75 150 mcg PO DAILY tablet 03/20/20 07/24/20 History mcg (3,000 unit) tablet magnesium 250 mg tablet 750 mg PO DAILY tablet 03/20/20 07/24/20 History albuterol sulfate 90 mcg/actuation 1 puff INHALATION Q4H PRN #8.5 g 06/13/20 07/24/20 Rx aerosol inhaler alprazolam [Xanax] 0.125 mg PO TID 07/24/20 07/24/20 History budesonide-formoterol [Symbicort] 2 puff INHALATION Q12H PRN 07/24/20 07/24/20 History Allergies Allergy/AdvReac Type Severity Reaction Status Date / Time No Known Allergies Allergy Verified 07/24/20 17:03 Vital Signs Vital Signs - 24 hr 07/24/20 16:53 07/24/20 18:17 07/24/20 19:22 Temperature 97.8 F Pulse Rate 93 95 85 Respiratory Rate 16 16 18 Blood Pressure 135/84 106/72 115/74 Pulse Oximetry 94 95 100 07/24/20 21:07 07/24/20 22:00 07/24/20 22:09 Temperature 97.8 F Pulse Rate 90 89 85 Respiratory Rate 18 19 Blood Pressure 127/57 L 113/65 Pulse Oximetry 96 96 Exam Narrative: Exam Narrative: PHYSICAL EXAM: WEIGHT 69.8 kg BMI 26.4 General: No acute distress, well-developed well-nourished HEENT: Mucous membranes are moist, no oral pharyngeal erythema, no scleral icterus, no conjunctival pallor, edentulous in upper jaw Respiratory: Clear to auscultation bilaterally, no increased work of breathing Cardiovascular: Irregularly irregular, 2+ bilateral radial pedal pulses, no JVD Gastrointestinal: Soft, nontender, nondistended, positive bowel sounds Skin: Varicose veins to the right thigh, no pallor, non jaundice Musculoskeletal: No clubbing, cyanosis or edema, age-related arthritic changes noted bilateral knees Neurological: Alert and oriented times 3 however patient has some difficulty recalling recent events Psychiatric: Pleasant and cooperative with moments of confusion : Deferred Hematologic/lymphatic: No petechiae, no bruising, no anterior cervical or submandibular lymphadenopathy H&P: Results Labs Labs: Laboratory Tests 07/24/20 17:31 07/24/20 17:31 07/24/20 07/24/20 07/24/20 17:31 17:31 17:31 WBC 9.6 RBC 4.92 Hgb 14.5 Hct 44.0 MCV 89.4 MCH 29.5 MCHC 33.0 RDW 13.4 Plt Count 214 MPV 10.4 Immature Gran % (Auto) 0.2 Neut % (Auto) 53.0 Lymph % (Auto) 36.4 [place] % (Auto) 6.9 Eos % (Auto) 3.0 Baso % (
[2020-07-25] VITALS (7 sets, daily range): BP systolic 108–125; BP diastolic 62–82; PULSE 76–94; RESP 15–23; TEMP 36.6; O2SAT 94–100
--- NOTE | 2020-07-25 | ECHO_ITS ---
Patient Info Name: Joseline Rueda Age: 85 years : 1935 Gender: Female Ht: 64 in Wt: 153 lbs BSA: 1.79 m2 HR: 72 bpm BP: 108 / 73 mmHg Technical Quality: Good Exam Date: 07/25/2020 7:54 AM Exam Location: [facility] Patient Status: Inpatient Admit Date: 07/24/2020 Staff Ordering Physician: Jocelyn Colvin DO District Manager [employer] Sales: Kei Preciado RDCS, RT Attending Provider: Jocelyn Colvin DO Referring Physician: Vinicius CHATMAN; Exam Type: CA echo doppler color flow Study Info Indications I49.8 - Other specified cardiac arrhythmias R07.89 - Other chest pain Complete two-dimensional, color flow and Doppler transthoracic echocardiogram is performed. Summary 1. Complete two-dimensional, color flow and Doppler transthoracic echocardiogram is performed. 2. Left ventricular chamber dimension is normal. 3. Left ventricular systolic function is normal, estimated at 55-60%. 4. There is mildly increased left ventricular wall thickness. 5. The left ventricular diastolic function is grade I diastolic dysfunction. 6. E/e' 12 is mildly elevated. 7. There is mild mitral valve regurgitation. 8. There is trace tricuspid valve regurgitation. Left Ventricle E/e' 12 is mildly elevated. Left ventricular chamber dimension is normal. Left ventricular systolic function is normal, estimated at 55-60%. There is mildly increased left ventricular wall thickness. The left ventricular diastolic function is grade I diastolic dysfunction. Right Ventricle Right ventricular systolic function is normal with normal TAPSE 1.9 cm. Right ventricular chamber dimension is normal. Left Atria Left atrial chamber dimension is normal. Right Atria Right atrial chamber dimension is normal. Aortic Valve The aortic valve is trileaflet. There is mild aortic valve sclerosis. There is no aortic valve stenosis. There is no aortic valve regurgitation. Pulmonic Valve There is no pulmonic regurgitation. Mitral Valve There is no mitral valve stenosis. There is mild mitral valve regurgitation. Tricuspid Valve There is trace tricuspid valve regurgitation. RVSP is not calculated due to an inadequate TR jet. Pericardium/Pleural There is no pericardial effusion. Inferior Vena Cava Normal inferior vena cava with >50% collapse upon inspiration consistent with normal right atrial pressure, 5 mmHg. Aorta The aortic root size at the sinus of Valsalva is normal. Left Ventricular Outflow Tract Name Value Normal LVOT 2D LVOT Diameter 2.1 cm LVOT Doppler LVOT Peak Gradient 2 mmHg LVOT Mean Gradient 1 mmHg LVOT VTI 14 cm LVOT VTI/AV VTI Ratio 0.7 LVOT Stroke Volume 50 ml LVOT CO 4.3 l/min LVOT CI 2.4 l/min/m2 Mitral Valve Name Value Normal
[2020-07-25 04:04] LABS: Glucose Point of Care 94 mg/dl (65-105)
[2020-07-25] MEDS: MAGNESIUM OXIDE 400 MG TABLET 800 MG PO (08:00)
[2020-07-25] MEDS: ALPRAZolam (*CRX) 0.125 MG TABLET PO (08:00)
[2020-07-25] MEDS: CHOLECALCIFEROL 1,000 UNITS TABLET 3000 UNITS PO (08:04)
--- NOTE | 2020-07-25 08:05 | PCRCNOTE ---
pt refused inhaler. She does not want it, and doesn't use them at home, even though they are home med.
--- NOTE | 2020-07-25 11:49 | PM.DS ---
DS: Admitting Diagnosis Admitting Diagnosis Admitting Diagnosis: Chest pain DS: Discharge Diagnosis Discharge Diagnosis (1) Chest pain: Qualifiers: Chest pain type: unspecified Qualified Code(s): R07.9 - Chest pain, unspecified Code(s): R07.9 - Chest pain, unspecified Status: Acute Assessment and Plan: 85-year-old female with past medical history of mild short-term memory loss, anxiety, COPD and frequent premature ventricular contractions who presented to the ER due to chest pain. The patient reports she had an episode of dizziness and palpitations June 2020 She had a 48 hour Holter monitor placed which demonstrated multiple supraventricular complexes and multiple premature ventricular complexes. Pt had negative troponins here, normal cxr and unremarkable echo. Pt having some PVC on the telemetry. Pt will be following cardiology for this as a outpatient. Pt appears very anxious pt is on xanax already follows with a psychiatrist. Had a recent admission to [facility] with palpitations. Summary of Echo report 1. Complete two-dimensional, color flow and Doppler transthoracic echocardiogram is performed. 2. Left ventricular chamber dimension is normal. 3. Left ventricular systolic function is normal, estimated at 55-60%. 4. There is mildly increased left ventricular wall thickness. 5. The left ventricular diastolic function is grade I diastolic dysfunction. 6. E/e' 12 is mildly elevated. 7. There is mild mitral valve regurgitation. 8. There is trace tricuspid valve regurgitation. (2) Frequent unifocal PVCs: Code(s): I49.3 - Ventricular premature depolarization Status: Acute Assessment and Plan: Found on telemetry pt is already on magnesium. Pt due to see cardiology as outpatient. DS: Summary Hospital Course Hospital Course: 85-year-old female with past medical history of mild short-term memory loss, anxiety, COPD and frequent premature ventricular contractions who presented to the ER due to chest pain. The patient reports she had an episode of dizziness and palpitations June 2020 She had a 48 hour Holter monitor placed which demonstrated multiple supraventricular complexes and multiple premature ventricular complexes. Pt stable for discharge. Pt had negative troponins here, normal cxr and unremarkable echo. Pt having some PVC on the telemetry. Pt will be following cardiology for this as a outpatient. Pt appears very anxious pt is on xanax already follows with a psychiatrist. Had a recent admission to [facility] with palpitations. Summary of Echo report 1. Complete two-dimensional, color flow and Doppler transthoracic echocardiogram is performed. 2. Left ventricular chamber dimension is normal. 3. Left ventricular systolic function is normal, estimated at 55-60%. 4. There is mildly increased left ventricular wall thickness. Pt will follow with her own compositor apprentice. Time Spent with Patient Time attestation: Total time spent providing and/or coordinating discharge services:40 minutes on day of discharge Exam Narrative: Exam Narrative: General: No acute distress HEENT: Mucous membranes are mois Respiratory: Clear to auscultation bilaterally are clear Cardiovascular: Irregularly irregular, 2+ Gastrointestinal: Soft, nontender, nondistended, positive bowel sounds Skin: Varicose veins to the right thigh, no pallor, non jaundice Musculoskeletal: No clubbing, cyanosis or edema, age-related arthritic changes noted bilateral knees Neurological: Alert and oriented times 3 however patient has some difficulty recalling recent events Psychiatric: Pleasant and cooperative with moments of confusion : Deferred Hematologic/lymphatic: No petechiae, no bruising, no anterior cervical or submandibular lymphadenopathy DS: Data Data Completed and Pending Labs on day of discharge: Labs from last 24 hours 07/25/20 07/24/20 07/24/20 04:00 22:53 21:33 WBC
== END 2020-07-25 12:30 | disposition home or self-care (01) ==
LOC: ANHED 18:52 → ANHICU 07-25 11:49
PROVIDERS: Admitting Provider Internal Medicine; Emergency Provider Emergency Medicine; PCP Family Medicine; Visit Provider Family Medicine
DX: R07.89 Other chest pain (principal); R06.02 Shortness of breath; F41.9 Anxiety disorder, unspecified; I49.3 Ventricular premature depolarization; J44.9 Chronic obstructive pulmonary disease, unspecified
CPT/HCPCS: 36415; 71046; 80048; 82948; 83735; 84484; 85025; 85380; 85610; 85730; 93005; 93306; 99285; A9270; G0378

== ENCOUNTER 2020-10-22 16:06 | Emergency (ER) | payer MEDICARE, SELFPAY ==
--- NOTE | ~2020-10-22 | XR_ITS ---
XR chest 2V DATE: 10/22/2020 16:51 INDICATION: Cough since yesterday. Nonsmoker. TECHNIQUE: 2 views COMPARISON: 07/24/2020 2 view chest FINDINGS: Normal heart size. Is aortic calcification and mild tortuosity. No hilar or mediastinal enl argement is evident. The lungs are hyperinflated. There is minimal atelectasis or fibrotic change at the left lung base. N o pulmonary infiltrate or consolidation, pleural effusion or pulmonary vascular congestion or pneumot horax. Status post left mastectomy and left axillary node dissection. Diffuse osteopenia. IMPRESSION: Minimal atelectasis or fibrotic change of the left lung base Moderate hyperinflation; no active pulmonary disease Aortic calcification and tortuosity Status post left mastectomy and left axillary node resection Reviewed, dictated and finalized at location A.
[2020-10-22 16:16] VITALS: BP 145/71; PULSE 93; RESP 16; TEMP 36.4; O2SAT 96
--- NOTE | 2020-10-22 16:48 | ED.URI ---
HPI - URI/Sore Throat General Chief Complaint: Upper Respiratory Infection Stated Complaint: cough Source: patient and RN notes reviewed Limitations: no limitations History of Present Illness HPI Narrative: The vaccinated patient-- a lifelong non-smoker/nondrinker with history of breast ca, mild RAD/COPD [mild obstructive abnormality w/o change in diffusion capacity with b-agonist noted on PFTs ]-- presents with cough. Patient states she has a shorter couple day history of frontal/facial headache, postnasal drip, nonproductive cough; last chest x-ray in July was noncontributory. No fever measured, sputum changes, S OB, loss of taste/smell, triggers(pet/smokers), CP sneezing?but there is some possible occ wheezing. Symptoms are mild, somewhat slightly worse upon awakening the morning unrelieved with her current MDI med. Screening chest x-ray shows no change from previous, except new left lower atelectasis Related Data Home Medications Medication Instructions Recorded Confirmed cholecalciferol (vitamin D3) 75 150 mcg PO DAILY tablet 03/20/20 10/22/20 mcg (3,000 unit) tablet magnesium 250 mg tablet 750 mg PO DAILY tablet 03/20/20 10/22/20 budesonide-formoterol [Symbicort] 2 puff INHALATION Q12H PRN 07/24/20 10/22/20 alprazolam 0.25 mg tablet 0.25 mg PO TID PRN 08/22/20 10/22/20 aripiprazole 2 mg tablet 2 mg PO .Bedtime tablet 09/25/20 10/22/20 metoprolol tartrate 25 mg tablet 12.5 mg PO BID tablet 10/08/20 10/22/20 Allergies Allergy/AdvReac Type Severity Reaction Status Date / Time No Known Allergies Allergy Verified 10/22/20 16:19 Review of Systems Review of Systems: General/Constitutional: No weight loss,fever Eyes: N0: Redness,discharge Ears/Nose/Throat: No: Epistaxis,ear discharge Respiratory: Denies: Hemoptysis Gastrointestinal: No Vomiting, Bleeding-rectal Skin: No Lumps, eruption Neurologic: No Focal Weakness,Sz Hematologic: Denies: Petechiae/Purpura Psychiatric: No: Suicida ideationl All Other Systems: Reviewed and Negative [facility] Past Medical History Medical History Anxiety Anxiety disorder, unspecified BMI 25.0-25.9,adult COPD (chronic obstructive pulmonary disease) Mild obstructive abnormality without change in diffusion capacity noted on PFTs July 2020 Depression Hypoglycemia Memory loss, short term PVCs (premature ventricular contractions) Vertigo Vitamin D deficiency Surgical History Surgical History Hx of tympanostomy tubes (~2015) Right Family History Family History Father Stomach ulcer Mother OCD (obsessive compulsive disorder) Uterine cancer Bladder cancer Sibling No problems noted. 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 There is no relevant family history pertinent to the presenting complaint Exam Narrative: General Appearance: Well appearing, Well nourished EYE: PERRLA, Conjunctiva clear Ears: Auditory canal normal, TM normal Nose: Rhinorrhea, Mucousal erythema Mouth/Throat: MM moist, Uvula midline, Pharyngeal erythema Neck: Supple, No adenopathy Respiratory: No respiratory distress, BS equal decreased at bases, CTA w/ forced expiration rare wheeze Cardiovascular: RRR, No JVD Musculoskeletal: Non tender, Normal strength Skin: Warm, Dry Neurological: A&O x3, CN II-XII intact Psychiatric: Normal mood,
== END 2020-10-22 17:50 | disposition home or self-care (01) ==
PROVIDERS: Emergency Provider Emergency Medicine; PCP Family Medicine
DX: R05 Cough (principal); R09.82 Postnasal drip; Z20.822 Contact with and (suspected) exposure to COVID-19; F41.9 Anxiety disorder, unspecified; J44.9 Chronic obstructive pulmonary disease, unspecified; E55.9 Vitamin D deficiency, unspecified
CPT/HCPCS: 71046; 87426; 99213; C9803; G0463

== ENCOUNTER → 2020-11-13 14:37 | Outpatient (CLI) | payer MEDICARE, SELFPAY ==
--- NOTE | ~2020-11-13 | XR_ITS ---
XR foot LT 2V, XR foot RT 2V 11/13/2020 15:08 (accession [id number]), 11/13/2020 15:09 (accession [id number]) Indication: Bilateral foot pain Procedure: 2 views each foot Comparison: No prior studies for comparison. Findings: Osteopenia. Lisfranc joint intact bilaterally. Normal alignment. No fracture or traumatic m alalignment. There is mild bilateral polyarticular osteoarthritis. Small degenerative calcaneal enthe sophytes. Impression: 1: Mild bilateral polyarticular osteoarthritis. Reviewed, dictated and finalized at location A. Impression: 1: Mild bilateral polyarticular osteoarthritis. Impression: 1: Mild bilateral polyarticular osteoarthritis.
== END ==
PROVIDERS: PCP Family Medicine; Visit Provider Physician Assistant Medical
DX: M19.071 Primary osteoarthritis, right ankle and foot (principal); M19.072 Primary osteoarthritis, left ankle and foot
CPT/HCPCS: 73620

== ENCOUNTER → 2021-02-05 12:07 | Outpatient (CLI) | payer MEDICARE, SELFPAY ==
--- NOTE | ~2021-02-05 | XR_ITS ---
EXAMINATION: XR lumbar spine 2-3V DATE: 02/05/2021 13:29 INDICATION: Dorsalgia, unspecified. TECHNIQUE: 3 views of lumbar spine were obtained. COMPARISON: Lumbar spine radiographs 02/25/2020 FINDINGS: There is 10 degrees levoscoliosis of thoracolumbar spine. There is 4 mm anterolisthesis of L4 on L5. Vertebral body heights are normal. There is mildly decreased disc height at L3-L4, severely decreased disc height at L4-L5, and moderately decreased disc height at L5-S1 with endplate remodeli ng. There is severe facet joint osteoarthritis in lower lumbar spine. A calcified mass in the pelvis is likely a uterine fibroid. IMPRESSION: 1. Severe lower lumbar spondylosis. 2. Thoracolumbar levoscoliosis. Reviewed, dictated and finalized at location A. [employer]
== END ==
PROVIDERS: Visit Provider Nurse Practitioner Family
DX: M47.896 Other spondylosis, lumbar region (principal)
CPT/HCPCS: 72100

== ENCOUNTER 2022-02-27 09:39 | Emergency (ER) | payer MEDICARE, SELFPAY ==
[2022-02-27 09:58] VITALS: BP 128/75; PULSE 77; RESP 16; TEMP 37; O2SAT 99
--- NOTE | 2022-02-27 10:07 | ED.ANIMALBIT ---
HPI - Animal Bite General Chief Complaint: Wound/Laceration Stated Complaint: Animal Bite Time Seen by Provider: 02/27/22 10:07 Source: patient, RN notes reviewed and old records reviewed Mode of arrival: ambulatory Limitations: no limitations History of Present Illness HPI narrative: 86-year-old female presents to the [facility] after being bit by a dog 2 days ago. States that her was trying to feed her dog when she got in the way. Two bite wounds noted with significant circumferential swelling of the 2nd finger left hand. Decreased range of motion, increased warmth. Erythema, swelling noted to both palmar aspect and dorsal aspect over metacarpals 2 and 3 with some redness and swelling to the base of the 1st metatarsal 1 cm puncture wound noted to the dip dorsal aspect as well as middle phalanx palmar aspect Onset (ago): day(s) (2) Related Data Patient tetanus UTD: No Home Medications Medication Instructions Recorded Confirmed magnesium 250 mg tablet 750 mg PO DAILY 03/20/20 02/27/22 aripiprazole 2 mg tablet 2 mg PO .Bedtime 09/25/20 02/27/22 Allergies Allergy/AdvReac Type Severity Reaction Status Date / Time No Known Allergies Allergy Verified 02/27/22 10:04 Review of Systems Review of Systems: All systems reviewed & are unremarkable except as noted in HPI and below Constitutional: Constitutional: Reports no additional constitutional complaints Eyes: Eyes: Reports no additional eye complaints ENT: Reports system reviewed and no additional complaints, except as documented Cardiovascular: Cardiovascular: Reports no additional cardiovascular complaints, Denies chest pain and Denies dyspnea Respiratory: Respiratory: Reports no additional respiratory complaints, Denies chest congestion, Denies cough and Denies dyspnea Gastrointestinal: Gastrointestinal: Reports no additional gastrointestinal complaints, Denies abdominal pain, Denies nausea and Denies vomiting Musculoskeletal: Musculoskeletal: Reports as per HPI Integumentary/Breasts: Skin/Breast: Reports as per HPI Neurologic: Reports system reviewed and no additional complaints, except as documented Psychiatric: Psychiatric: Reports no additional psychiatric complaints Allergic/Immunologic: Allergic/Immunologic: Reports no additional allergic/immunologic complaints PMFSH Past Medical History Medical History Anxiety Anxiety disorder, unspecified BMI 25.0-25.9,adult BMI 26.0-26.9,adult Cataract COPD (chronic obstructive pulmonary disease) Mild obstructive abnormality without change in diffusion capacity noted on PFTs July 2020 Depression FH: mastectomy Hypoglycemia Memory loss, short term PVCs (premature ventricular contractions) Vertigo Vitamin D deficiency Surgical History Surgical History Hx of tympanostomy tubes (~2016) Right Family History Family History Father Stomach ulcer Mother OCD (obsessive compulsive disorder) Uterine cancer Bladder cancer Sibling Hyperlipemia Hypertension Heart disease Social History Social History Smoking status: Never smoker Second hand tobacco smoke exposure: No Alcohol intake: never Substance use: never Substance use type: does not use Additional living arrangements comments: 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 There is no relevant family history pertinent to t
[2022-02-27] MEDS: TETANUS/DIPHTHERIA TOXOIDS ADSORB 0.5 ML VIAL (*BKC) IM (10:25)
--- NOTE | 2022-02-27 10:29 | PC.NURSE ---
aware provider called johanny er and recommendation to f/u for hand specialist. requested luis schwartz. called and confirmed with .
--- NOTE | 2022-02-27 11:19 | PC.NURSE ---
private eye and rn chart sent with pt. and aware info. for [facility].
== END 2022-02-27 10:41 | disposition short-term general hospital (02) ==
PROVIDERS: Emergency Provider Nurse Practitioner; PCP Family Medicine
DX: S61.211A Laceration without foreign body of left index finger without damage to nail, initial encounter (principal); S61.231A Puncture wound without foreign body of left index finger without damage to nail, initial encounter; L03.012 Cellulitis of left finger; L03.114 Cellulitis of left upper limb; W54.0XXA Bitten by dog, initial encounter; Z23 Encounter for immunization; J44.9 Chronic obstructive pulmonary disease, unspecified; F41.9 Anxiety disorder, unspecified; F32.A Depression, unspecified
CPT/HCPCS: 90471; 90714; 99212; G0463

== ENCOUNTER → 2022-04-19 13:07 | Outpatient (CLI) | payer MEDICARE, SELFPAY ==
--- NOTE | ~2022-04-19 | XR_ITS ---
Clinical Indication: Cough PA and lateral views of the chest: Comparison: 10/22/2020 Findings: The lungs are clear, without evidence of focal consolidation or pleural effusion. Cardiome diastinal silhouette is within normal limits. Bones and soft tissues are unremarkable. Impression: Normal chest. Reviewed, dictated and finalized at location . LY SHIFT MANAGER Impression: Normal chest.
== END ==
PROVIDERS: PCP Family Medicine; Visit Provider Nurse Practitioner Family
DX: R05.9 Cough, unspecified (principal)
CPT/HCPCS: 71046

== ENCOUNTER 2022-05-05 07:43 | Outpatient (CLI) | payer MEDICARE, SELFPAY ==
--- NOTE | 2022-05-10 23:51 | P.PCNPFT_ITS ---
PFT Procedure Performed PFT Procedure Performed Spirometry with Pre/Post Bronchodilator Plethysmography (Lung Vol) Diffusing Cap (DLCO) Flow Vol Loop PFT Interpretation DOS: 05/05/2022 REQUESTING: Annmarie Reyes NP REASON FOR TESTING: Cough PULMONARY FUNCTION TESTS Results are reliable and reproducible before bronchodilator. After bronchodilator, reliability is less. Spirometry: Pre-bronchodilator FEV1 is 1.46 L, 80%, normal. Pre- bronchodilator FVC is 2.43 L, 100%, normal. FEV1/FVC is 60%, decreased, consistent with airflow obstruction After bronchodilator, FEV1 increases 2%, FVC decreases 5%. These are non-statistically significant changes. Lung volumes: Total lung capacity is 5.23 L, 103% predicted, normal. Residual volume is 2.79 L, 112% predicted, normal. RV/TLC is 53%, normal. Airway resistance is 3.13 cmH2O/L/sec, 225%, increased. Diffusion: DLCO is 14.6, 77%, normal. DLCO /VA is 4.24, 105%, normal. Flow volume loop: Normal. IMPRESSION: There is a mild obstructive ventilatory impairment with normal lung volumes and diffusion. Lack of response to bronchodilator should not preclude use if clinically indicated. In the proper clinical setting, this pattern could represent asthma. Opal Doe MD
== END 2022-05-05 07:44 | disposition home or self-care (01) ==
PROVIDERS: PCP Family Medicine; Visit Provider Nurse Practitioner Family
DX: R05.9 Cough, unspecified (principal); R94.2 Abnormal results of pulmonary function studies
CPT/HCPCS: 94060; 94726; 94729

== ENCOUNTER 2023-11-08 17:17 | Emergency (ER) | payer MEDICARE, SELFPAY ==
[2023-11-08 17:31] VITALS: BP 138/118; PULSE 76; RESP 16; TEMP 36.8; O2SAT 96
--- NOTE | 2023-11-08 17:58 | ED.WOUNDLAC ---
HPI - Wound/Laceration General Chief Complaint: Wound/Laceration Stated Complaint: cut above right eye Time Seen by Provider: 11/08/23 17:55 Source: patient and RN notes reviewed Mode of arrival: ambulatory Limitations: no limitations History of Present Illness HPI narrative: 88-year-old female presents with concern for cut above her right eye. Patient reports she tripped this afternoon and caught her head. She reports this happened about 3 hours ago. She denies loss of consciousness. She denies any current headache. Reports she had a headache initially that resolved. She denies vomiting, dizziness. Reports she 1st when she tripped fell, hit her nose and her head. Denies bloody nose or nose pain currently. Related Data Home Medications Medication Instructions Recorded Confirmed magnesium 250 mg tablet 750 mg PO DAILY 03/20/20 11/08/23 cholecalciferol (vitamin D3) 125 125 mcg PO DAILY 09/30/22 11/08/23 mcg (5,000 unit) capsule Allergies Allergy/AdvReac Type Severity Reaction Status Date / Time No Known Allergies Allergy Verified 11/08/23 17:43 Review of Systems Review of Systems: CONSTITUTIONAL: Denies malaise, chills, sweats, or fever. SKIN: Reports laceration above her right eyebrow MUSCULOSKELETAL: Denies muscle skeletal pain GI: Denies vomiting NEUROLOGIC: Denies numbness, weakness All systems reviewed & are unremarkable except as noted in HPI and below PMFSH Past Medical History Medical History Anxiety Anxiety disorder, unspecified BMI 28.0-28.9,adult Cataract COPD (chronic obstructive pulmonary disease) Mild obstructive abnormality without change in diffusion capacity noted on PFTs July 2020 Depression Dysuria FH: mastectomy Fracture of toe of right foot Gross hematuria Hot flashes Hypoglycemia Impacted cerumen, left ear Lightheaded Memory loss, short term PVCs (premature ventricular contractions) Vertigo Vitamin D deficiency Surgical History Surgical History Hx of tympanostomy tubes (~2015) Right Family History Family History Father Stomach ulcer Mother OCD (obsessive compulsive disorder) Uterine cancer Bladder cancer Sibling Hyperlipemia Hypertension Heart disease Social History Social History Smoking status: Never smoker Second hand tobacco smoke exposure: No Alcohol intake: never Substance use: never Substance use type: does not use Lack of Transportation: No Lack of Food: Never True Current Housing: I Have Housing Concerned About Future Housing: No Difficulty Paying Gas/Electric Bills: No Difficulty Paying for Meds: No Currently Unemployed: No Education: Trade/Vocational Certificate Difficulty w/ Childcare or Family Care: No Living arrangements: with family Additional living arrangements comments: Occupation/Education: 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 There is no relevant family history pertinent to the presenting complaint Exam Narrative: GENERAL: Well-appearing, well-nourished, and in no acute distress. HEAD: Normocephalic, atraumatic. EYES: PERRLA, sclera clear, and EOMI. No nystagmus. ENT: Nares clear,no rhinorrhea or epistaxis. Mucous membranes moist. NECK: Supple. CHEST: No respiratory distress. Speaks in full sentences. HEART: Regular rate and rhythm. No murmur heard. Normal peripheral pulses. EXTREMITIES: Pili
== END 2023-11-08 18:10 | disposition home or self-care (01) ==
PROVIDERS: Emergency Provider Nurse Practitioner; PCP Family Medicine
DX: S01.81XA Laceration without foreign body of other part of head, initial encounter (principal); W01.0XXA Fall on same level from slipping, tripping and stumbling without subsequent striking against object, initial encounter; J44.9 Chronic obstructive pulmonary disease, unspecified; E55.9 Vitamin D deficiency, unspecified
CPT/HCPCS: 12011; 99212; G0463

== ENCOUNTER 2024-05-08 14:52 | Outpatient (CLI) | payer MEDICARE, SELFPAY | END 2024-05-08 14:53 | disposition home or self-care (01) | LOC: ANHIMG 14:53 | PROVIDERS: PCP Family Medicine; Visit Provider Nurse Practitioner Family | DX: Z12.31 Encounter for screening mammogram for malignant neoplasm of breast (principal); R92.8 Other abnormal and inconclusive findings on diagnostic imaging of breast | CPT/HCPCS: 77063; 77067 ==

== ENCOUNTER 2024-12-21 11:32 | Emergency (ER) | payer MEDICARE, SELFPAY ==
--- NOTE | 2024-12-21 11:42 | ED_ITS ---
HPI - General Adult General Chief complaint: Head Injury Stated complaint: FALL/Head Injury Time Seen by Provider: 12/21/24 11:44 Source: patient, RN notes reviewed and old records reviewed Mode of arrival: ambulatory Limitations: no limitations History of Present Illness HPI narrative: 89-year-old female presents to the [facility] with concerns of a fall and hitting head 8 days ago December. Has bruising to the left orbit, into the temporal area. Has bruising to the right lower leg. Patient reports no concerns for the bruising to the right lower leg. States that 4 days ago started having right-sided orbit and eye pain intermittently. Denies any history of headaches. Does have a history of vertigo, facial tics. Denies any blurry vision, denies change in vision Denies nausea, vomiting, dizziness States that she takes Tylenol. Patient reports that she called her primary care provider's office was told to come to the urgent care for evaluation Treatments prior to arrival: other (tylenol) Related Data Home Medications ?Medication ?Instructions ?Recorded ?Confirmed ?Last Taken ?Type aspirin 81 mg tablet 81 mg PO DAILY 07/23/24/10/29 Unknown History sennosides 8.6 mg-docusate sodium 1 tab-cap PO QHS 11/12/24 Unknown History 50 mg capsule (Senna Plus) Allergies Allergy/AdvReac Type Severity Reaction Status Date / Time No Known Allergies Allergy Verified 12/21/24 11:37 Review of Systems 2 Review of Systems: All systems reviewed & are unremarkable except as noted in HPI and below Constitutional: Constitutional: Reports no additional constitutional complaints Eyes: Eyes: Reports as per HPI and Reports eye pain (Intermittent right eye) ENT: Reports as per HPI Cardiovascular: Cardiovascular: Reports no additional cardiovascular complaints, Denies chest pain and Denies dyspnea Respiratory: Respiratory: Reports no additional respiratory complaints, Denies chest congestion, Denies cough and Denies dyspnea Musculoskeletal: Musculoskeletal: Reports no additional musculoskeletal complaints Integumentary/Breasts: Skin/Breast: Reports as per HPI Neurologic: Reports system reviewed and no additional complaints, except as documented PMFSH Past Medical History Medical History Hair thinning Dysuria Gross hematuria BMI 28.0-28.9,adult Hot flashes Weight gain Cataract Lightheaded Imbalance Back pain FH: mastectomy Muscle cramping Impacted cerumen, left ear Vitamin D deficiency COPD (chronic obstructive pulmonary disease) Mild obstructive abnormality without change in diffusion capacity noted on PFTs July 2020 Memory loss, short term PVCs (premature ventricular contractions) Anxiety disorder, unspecified Fracture of toe of right foot Hypoglycemia Depression Anxiety Vertigo Surgical History Surgical History Hx of tympanostomy tubes (~2016) Right Family History Family History Father Stomach ulcer Mother OCD (obsessive compulsive disorder) Uterine cancer Bladder cancer Sibling Hyperlipemia Hypertension Heart disease Social History Social History Smoking status: Never smoker Second hand tobacco smoke exposure: No Alcohol intake: never Substance use: never Substance use type: does not use Do You Feel Safe in your Home?: Yes Lack of Transportation: No Lack of Food: Never True Current Housing: I Have Housing Concerned About Future Housing: No Difficulty Paying Gas/Electric Bills: No Difficulty Paying for Meds: No Currently Unemployed: No Education: Trade/Vocational Certificate Difficulty w/ Childcare or Family Care: No Living arrangements: with family Additional living arrangements comments: 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 There is no relevant family history pertinent to the patient complaint. Exam 2 Const: General: cooperative, no acute distress, well developed, alert and well nourished Nutritional Appearance: well nourished O rientation/consciousness: patient oriented x3 Limitations: no limitations HENMT: Head: normal to inspection Ears: hearing grossly normal bilaterally, external ears normal, TM's normal bilaterally, EAC's normal, mastoids normal and no periauricular adenopathy Face/Nose/Sinus: Normal external nose present Face and sinus: face symmetric and ecchymosis on the left periorbital Mouth: Yes Normal oral and palatal mucosa present, Yes lip normal, Yes tongue normal and Yes moist mucous membranes Throat: posterior oropharynx normal, uvula midline and no uvular edema Eyes: General: appearance normal, both eyes and all related structures A lignment and Position: alignment normal Eyelids: eyelids normal C onjunctivae: conjunctivae normal Pupils: Equal, round and reactive pupils present EOM: EOMs intact bilaterally Neck: Neck: normal visual inspection, full ROM, no lymphadenopathy and no meningeal signs Chest: Chest palpation & inspection: normal inspection of the chest Resp: Effort & Inspection: normal respiratory effort and able to speak in complete sentences Auscultation: clear to auscultation bilaterally, no crackles, no rales, no rhonchi and no wheezes Cardio: Rate: regular rate Skin: General skin exam: normal color and no rashes or lesions noted Full body images: 1. Bruising 2. Bruising Neuro: General: patient oriented x3, gait normal, moves all extremities and no meningeal signs Cognition (Neuro): normal cognition Speech: normal speech Gait exam (Neuro): Normal gait present Extrem: General: normal to inspection, full ROM, capillary refill normal and normal gait Psych: Appearance: grossly normal and well kempt Mental Status: mental status grossly normal Speech and movement: Normal speech and movement present and Clear speech present Affect: normal affect Attitude: cooperative Course Course Level of Care: Express Care Visit Vital Signs Vital signs: Vital Signs Temperature 98.2 F 12/21/24 11:44 Pulse Rate 97 12/21/24 11:44 Respiratory Rate 14 12/21/24 11:44 Blood Pressure 129/96 H 12/21/24 11:44 Pulse Oximetry 98 12/21/24 11:44 Oxygen Delivery Room Air 12/21/24 11:44 Temperature 98.2 F 12/21/24 11:44 Pulse Rate 97 12/21/24 11:44 Respiratory Rate 14 12/21/24 11:44 Blood Pressure 129/96 H 12/21/24 11:44 Pulse Oximetry 98 12/21/24 11:44 Oxygen Delivery Room Air 12/21/24 11:44 Reviewed Transfer Transfered to: [facility] Transportation: Other (POV, declined EMS) Transfer rationale: Patient with a trip and fall hitting head and leg. Patient with no concern for the bruising to the right leg. Has bruising to the left orbit area. Unable to reproduce pain however patient is concerned that she has intermittent pain to the right orbit and right eyeball. Patient is 89 years old. No blood thinners Accepting physician: Dr. Young Medical Decision Making MDM Narrative Medical decision making narrative: Patient sitting in exam room. Patient is nontoxic, vitals are stable. Patient presents 8 days post fall hitting head. Four days ago has had intermittent pain to the right orbit. Denies any neuro deficits. Denies any blurry vision change in vision. Discharge instructions reviewed with patient, as well as provided in writing per nursing staff. The instructions also include specific and strict return/GO TO THE ER as well as f/u information. All questions have been answered, and the patient deny any further questions with discharge and discharge plan. Some parts of this dictation were generated by voice recognition software and may contain typographical and/or grammatical inaccuracies. Differential Diagnosis Differential Diagnosis: Orbit fracture, concussion, head bleed, contusion Medical Records Medical records reviewed: Yes I reviewed the external patient's medical records. Vital Signs Vital Signs: Vital Signs Temperature 98.2 F 12/21/24 11:44 Pulse Rate 97 12/21/24 11:44 Respiratory Rate 14 12/21/24 11:44 Blood Pressure 129/96 H 12/21/24 11:44 Pulse Oximetry 98 12/21/24 11:44 Oxygen Delivery Room Air 12/21/24 11:44 Temperature 98.2 F 12/21/24 11:44 Pulse Rate 97 12/21/24 11:44 Respiratory Rate 14 12/21/24 11:44 Blood Pressure 129/96 H 12/21/24 11:44 Pulse Oximetry 98 12/21/24 11:44 Oxygen Delivery Room Air 12/21/24 11:44 Reviewed Lab Data Lab results reviewed: Yes I reviewed the patient's lab results. Labs: Reviewed Critical Care Time Critical Care Time Critical Care Time: No Discharge Plan Discharge Clinical Impression: Fall, Head trauma, Contusion of leg, right Patient Disposition: Acute Care Hospital Condition: Stable Patient Language: Bulgarian Prescriptions: No Action Senna Plus 8.6-50 mg capsule 1 tab-cap PO QHS aspirin 81 mg tablet 81 mg PO DAILY levalbuterol tartrate 45 mcg/actuation HFA aerosol inhaler 2 inh inhalation Q4H PRN (Reason: shortness of breath or wheezing) Qty: 15 2RF budesonide-formoterol [Symbicort] 160-4.5 mcg/actuation HFA aerosol inhaler 2 puff inhalation Q12H Qty: 10.2 2RF citalopram [Celexa] 20 mg tablet 20 mg PO DAILY Qty: 90 0RF meclizine 25 mg tablet 25 mg PO BID-TID Qty: 30 0RF Follow-up/Referrals: Narayan Salamanca MD [Primary Care Provider, Family Practice]
[2024-12-21 11:44] VITALS: BP 129/96; PULSE 97; RESP 14; TEMP 36.8; O2SAT 98
== END 2024-12-21 12:02 | disposition short-term general hospital (02) ==
PROVIDERS: Emergency Provider Nurse Practitioner; PCP Family Medicine
DX: S09.90XA Unspecified injury of head, initial encounter (principal); S80.11XA Contusion of right lower leg, initial encounter; W01.0XXA Fall on same level from slipping, tripping and stumbling without subsequent striking against object, initial encounter; J44.9 Chronic obstructive pulmonary disease, unspecified; F41.9 Anxiety disorder, unspecified; F32.A Depression, unspecified; Z79.82 Long term (current) use of aspirin
CPT/HCPCS: 99213; G0463

== ENCOUNTER 2024-12-21 12:25 | Emergency (ER) | payer MEDICARE, SELFPAY ==
--- NOTE | ~2024-12-21 | CT_ITS ---
EXAMINATION: CT cervical spine wo con DATE: 12/21/2024 12:53 INDICATION: Fall. Neck injury. TECHNIQUE: Computed tomography (CT) of the cervical spine was performed without intravenous contrast. Automated exposure control and iterative reconstruction technique were employed. The dose-length product was 256.43 mGy-cm. COMPARISON: CT cervical spine 10/31/2019 FINDINGS: Alignment is normal. Vertebral body heights are normal. There is mildly decreased disc height at C2-C3 and severely decreased disc height from C3-C4 through C6-C7. There is diffuse osteopenia. There is a stable lytic lesion in C5 spinous process, likely benign. 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 There is mild neural foraminal stenosis at multiple levels on either side. There is mild central canal stenosis at C3-C4, C4-C5, and C5-C6. IMPRESSION: 1. No fracture. 2. Severe cervical spondylosis. Reviewed, dictated and finalized at location E.
--- NOTE | ~2024-12-21 | US_ITS ---
EXAMINATION: US venous doppler LE RT DATE: 12/21/2024 15:18 INDICATION: Right lower limb swelling and erythema post fall TECHNIQUE: Grayscale ultrasound images without and with compression and Doppler ultrasound images of the right lower extremity veins were obtained. COMPARISON: None. FINDINGS: The visualized portions of right common femoral vein, profunda (deep) femoral vein, femoral vein, popliteal vein, peroneal trunk, posterior tibial veins, peroneal veins, gastrocnemius vein and greater saphenous vein outflow are patent. There is a 4.3 x 1.5 x 4.3 cm anechoic fluid collection at the medial anterior knee. IMPRESSION: 1. No deep venous thrombosis in the right lower limb. 2. 4.3 x 1.5 x 4.3 similar fluid collection at the medial anterior right knee which given history of trauma most likely represents a small hematoma. Differential would include ganglion cyst or bursitis. Reviewed, dictated and finalized at location A. IMPRESSION: 1. No deep venous thrombosis in the right lower limb. 2. 4.3 x 1.5 x 4.3 similar fluid collection at the medial anterior right knee w hich given history of trauma most likely represents a small hematoma. Different ial would include ganglion cyst or bursitis.
--- NOTE | ~2024-12-21 | CT_ITS ---
EXAMINATION: CT brain wo con DATE: 12/21/2024 12:53 INDICATION: Fall. TECHNIQUE: Computed tomography (CT) of the head was performed without intravenous contrast. The mA was adjusted according to patient size. Iterative reconstruction technique was employed. The dose-length product was 605.33 mGy-cm. COMPARISON: Head CT 10/31/2019 FINDINGS: There are scattered areas of low attenuation in the cerebral white matter, which is within normal limits for the patient's age. There is no intracranial hemorrhage, acute infarction, or abnormal intracranial mass lesion. The ventricles are normal in size. There are likely changes of ocular lens replacement surgeries. There is mild mucosal thickening in the paranasal sinuses. The mastoid air cells are normal. IMPRESSION: 1. Normal aging brain. Reviewed, dictated and finalized at location E. IMPRESSION: 1. Normal aging brain.
[2024-12-21 12:27] VITALS: BP 149/77; PULSE 99; RESP 16; TEMP 36.9; O2SAT 99
--- OUTSIDE RECORDS SUMMARY | 2024-12-21 12:46 | XMS_ITS | Encounter Summary ---
Author Organization [facility] Healthcare Address [address] [place] [address] Care Team Providers Care Utility Assembler Name Role Phone Narayan Salamanca MD Primary Care Provider Encounter Details Date Type Department Care Team (Late st Contact Info) Description 09/17/2020 Telephone [facility] [address] [place] [address] Mari Jarvis [facility] [address] [place] [address] Social History Tobacco Use Types Packs/Day Years Used Date Smoking Tobacco: Never Smokeless Tobacco: Never Alcohol Use Standard Drinks/Week Comments No 0 (1 standard drink = 0.6 oz pur e alcohol) Comments Unknown Sex and Gender Information Value Date Recorded Sex Assigned at Not on file Legal 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
--- OUTSIDE RECORDS SUMMARY | 2024-12-21 12:46 | XMS_ITS | Encounter Summary ---
Author Organization [facility] Healthcare Address [address] [place] [address] Care Team Providers Care Gyro Mechanic Name Role Phone Narayan Salamanca MD Primary Care Provider [phone] Encounter Details Date Type Department Care Team (Late st Contact Info) Description 02/26/2021 Telephone [facility] Senior [facility] [address] [place] [address] Mari Jarvis [facility] [address] [place] [address] Social History Tobacco Use Types Packs/Day Years Used Date Smoking Tobacco: Never Smokeless Tobacco: Never Alcohol Use Standard Drinks/Week Comments No 0 (1 standard drink = 0.6 oz pur e alcohol) PHQ-2 Answer Date Recorded PHQ-2 Total Score (If total score is 3 or more points, staff should administer the PHQ-9) 0 02/06/2021 Comments Unknown Sex and Gender Information Value Date Recorded Sex Assigned at Not on file Legal 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
--- OUTSIDE RECORDS SUMMARY | 2024-12-21 12:46 | XMS_ITS | Encounter Summary ---
Author Organization [facility] Healthcare Address [address] [place] [address] Care Team Providers Care Track Inspecting Supervisor Name Role Phone Narayan Salamanca MD Primary Care Provider Encounter Details Date Type Department Care Team (Late st Contact Info) Description 09/10/2020 Telephone [facility] Senior [facility] [address] [place] [address] Mari Jarvis [facility] [address] [place] [address] Social History Tobacco Use Types Packs/Day Years Used Date Smoking Tobacco: Never Assessed Alcohol Use Standard Drinks/Week Comments No 0 (1 standard drink = 0.6 oz pur e alcohol) Comments Unknown Sex and Gender Information Value Date Recorded Sex Assigned at Not on file Legal Sex Female 7:31 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
--- OUTSIDE RECORDS SUMMARY | 2024-12-21 12:46 | XMS_ITS | Encounter Summary ---
Author Organization [id number] Address 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
--- OUTSIDE RECORDS SUMMARY | 2024-12-21 12:46 | XMS_ITS | Encounter Summary ---
Author Organization [facility] Healthcare Address [address] [place] [address] Care Team Providers Care Block Engraver Name Role Phone Narayan Salamanca MD Primary Care Provider [phone] Encounter Details Date Type Department Care Team (Late st Contact Info) Description 08/14/2020 Telephone [facility] Senior [facility] [address] [place] [address] Mari Jarvis [facility] [address] [place] [address] Social History Tobacco Use Types Packs/Day Years Used Date Smoking Tobacco: Never Assessed Alcohol Use Standard Drinks/Week Comments No 0 (1 standard drink = 0.6 oz pur e alcohol) Comments Unknown Sex and Gender Information Value Date Recorded Sex Assigned at Not on file Legal Sex Female 7:31 PM EQUIPMENT LEAD Gender Identity Not on file Sexual Orientation Not on file documented as of this encounter Plan of Treatment Not on file documented as of this encounter Visit Diagnoses Not on filedocumented in this encounter Care Teams Block Engraver Relationship Specialty Start Date End Date Narayan Salamanca MD PCP - General 05/05/20 documented as of this encounter
--- OUTSIDE RECORDS SUMMARY | 2024-12-21 12:46 | XMS_ITS | Encounter Summary ---
Author Organization [facility] Address [address] [place] [address] Care Team Providers Care Sewer Pipe Press Operator Name Role Phone Bakari Parsons MD Primary Care Provider [phone] Encounter Details Date Type Department Care Team (Latest Contact Info) Description 05/14/2003 Outpatient Historical HIS [facility] GLYNN Rao, Jamaal Mansfield MD NO ADDRESS ON FILE SCREENING MAMM-MAILG NEOPL-OTHER (Primary Dx) Social History Tobacco Use Types Packs/Day Years Used Date Smoking Tobacco: Never Assessed Comments Unknown Sex and Gender Information Value Date Recorded Sex Assigned at Not on file Legal Sex Female 4:14 AM CLAIM REPRESENTATIVE Gender Identity Not on file Sexual Orientation Not on file documented as of this encounter Plan of Treatment Not on file documented as of this encounter Visit Diagnoses Diagnosis Other screening mammogram- Primary documented in this encounter Care Teams Sewer Pipe Press Operator Relationship Specialty Start Date End Date Bakari Parsons MD [address] [place] [id number] PCP - General Family Practice 10/12/10 documented as of this encounter
--- OUTSIDE RECORDS SUMMARY | 2024-12-21 12:46 | XMS_ITS | Encounter Summary ---
Author Organization [facility] Healthcare Address [address] [place] [address] Care Team Providers Care Master Planner Name Role Phone Narayan Salamanca MD Primary Care Provider [phone] Reason for Visit * Reason Onset Date Comments Appointment 09/03/2020 Encounter Details Date Type Department Care Team (Late st Contact Info) Description 09/03/2020 Telephone [facility] Senior [facility] [address] [place] [address] Mari Jarvis LCSW [address] [place] [address] Appointment Social History Tobacco Use Types Packs/Day Years Used Date Smoking Tobacco: Never Assessed Alcohol Use Standard Drinks/Week Comments No 0 (1 standard drink = 0.6 oz pur e alcohol) Comments Unknown Sex and Gender Information Value Date Recorded Sex Assigned at Not on file Legal Sex Female 7:31 PM SILK SPOTTER Gender Identity Not on file Sexual Orientation Not on file documented as of this encounter Plan of Treatment Not on file documented as of this encounter Visit Diagnoses Not on filedocumented in this encounter Care Teams Master Planner Relationship Specialty Start Date End Date Narayan Salamanca MD PCP - General 05/05/20 documented as of this encounter
--- OUTSIDE RECORDS SUMMARY | 2024-12-21 12:46 | XMS_ITS | Clinical Summary ---
Author Organization [facility] Address [address] [place] [address] Care Team Providers Care Odd Jobs Day Worker Name Role Phone Bakari Parsons MD Primary Care Provider [phone] Family History Medical History Relation Comments Breast Cancer Paternal Aunt 1 Breast Cancer Paternal Aunt 2 Relation Status Comments Paternal Aunt 1 Paternal Aunt 2 Social History Tobacco Use Types Packs/Day Years Used Date Smoking Tobacco: Never Assessed Comments Unknown Sex and Gender Information Value Date Recorded Sex Assigned at Not on file Legal Sex Female 7:50 PM CDT Gender Identity Not on file Sexual Orientation Not on file Plan of Treatment Health Maintenance Due Date Last Done Comments Pneumococcal Vaccine: 50+ Years (1 of 1 - PCV) 1986 Zoster Vaccines (1 of 2) 1986 Annual Medicare Wellness Visit 2001 RSV Immunization or 60+ Years (1 - 1-dose 75+ series) 05/13/2011 COVID-19 Vaccine (3 - 2024-2 6 season) 2024 05/20/2020, 04/23/2020 Influenza Adult (#1) 2024 12/26/2019 DTaP, Tdap and Td Vaccines ( 2 - Td or Tdap) 10/30/2029 10/31/2019 Meningococcal B Vaccine Aged Out No l onger eligible based on patient's age to complete this topic Meningococcal Vaccine Aged Out No chris berta eligible based on patient's age to complete this topic RSV Immunizations Under 20 Months Aged Out No longer eligible b ased on patient's age to complete this topic Insurance [employer] MEDICARE GENERIC - COMMERCIAL Care Teams Odd Jobs Day Worker Relationship Specialty Start Date End Date Bakari Parsons MD [address] [place] [id number] PCP - General 09/30/16
--- OUTSIDE RECORDS SUMMARY | 2024-12-21 12:46 | XMS_ITS | Encounter Summary ---
Author Organization [facility] Healthcare Address [address] [place] [address] Care Team Providers Care Banbury Operator Name Role Phone Narayan Salamanca MD Primary Care Provider [phone] Encounter Details Date Type Department Care Team (Late st Contact Info) Description 08/27/2021 Telephone [facility] Senior Counseling [address] [place] [address] Mari Jarvis [facility] [address] [place] [address] Social History Tobacco Use Types [...] on file Legal Sex Female 7:31 PM TIMBER ROBBER Gender Identity Not on file Sexual Orientation Not on file documented as of this encounter Plan of Treatment Not on file documented as of this encounter Visit Diagnoses Not on filedocumented in this encounter Additional Health Concerns Active Problems Noted Date Diagnosed Date 3:Problems with aging 12/03/2021 Note: Problem Statement: Pt has excessive fears and worry with spouse declining health. Due to symptoms of : _x_Depression __X_ Anxiety ___Psychosis ___Emotional Dysregulation ___Other: As Evidenced by: Low energy, poor concentration, difficulty making decisions, heart racing, panic feelings, fears, excessive worrying, obsessions, restlessness. Sack Filler Goal/Discharge Criteria: Pt will significantly reduce the overall frequency and intensity of her anxiety symptoms so that pt can improve daily functioning.Discharge will be assessed in 30 days 12/24/21. Pt discharge will follow up with her PCP, a new psychiatrist, and her and family for support and continued treatment. Pt may return to [facility] for a reassessment for services at that time. Pt will be given resources to further education for continued care. Treatment Modalities: Group Therapy/Individual Therapy. Diagnosis: F33.1 (ICD-10-CM) - Major depressive disorder, recurrent episode, moderate (HCC) F41.1 (ICD-10-CM) - FELIX (generalized anxiety disorder) F42.2 (ICD-10-CM) - Mixed obsessional thoughts and acts documented as of this encounter Care Teams Banbury Operator Relationship Specialty Start Date End Date Narayan Salamanca MD PCP - General 05/05/20 documented as of this encounter
--- OUTSIDE RECORDS SUMMARY | 2024-12-21 12:46 | XMS_ITS | Clinical Summary ---
Author Organization [facility] [address] [place] [address] Address [address] [facility] [address] [place] [address] Care Team Providers Care Modeling Director Name Role Phone Narayan Salamanca MD Primary Care Provider Allergies No known active allergies Medications albuterol HFA (PROVENTIL HFA,VENTOLIN HFA,PROAIR HFA) 90 mcg/actuation inhaler 06/13/2020 Active Symbicort 160-4.5 mcg/actuation inhaler 07/16/2021 Active citalopram (CeleXA) 20 mg tabletIndication s:Generalized Anxiety Disorder,major depressive disorder,Panic Disorder Take 1 tablet (20 mg total) by mouth daily 90 tablet 1 09/11/2021 Active Active Problems Problem Noted Date Diagnosed Date Prediabetes 05/22/2021 Recurrent major depression in partial remission 11/14/2020 Generalized anxiety disorder 09/23/2020 Panic attacks 09/11/2020 Dizziness 09/11/2020 Tired 09/11/2020 Hyperlipidemia LDL goal <100 09/11/2020 Asthma 09/11/2020 Atypical chest pain 09/11/2020 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 Resolved Problems Problem Noted Date Diagnosed Date Resolved Date Anxiety and depression 09/11/202009/12 Current mild episode of deep r depressive disorder 09/04/2020 09/05/2020 Current mild episode of deep r depressive disorder without prior episode 08/28/2020 Anger 08/28/2020 07/02/2021 MDD (major depressive disord er), recurrent episode, moderate 08/26/2020 09/05/2020 Major depressive disorder, r ecurrent episode, moderate 08/15/2020 11/14/2020 Assessment & Plan (08/15/2020 2:30 PM CDT): Depressive symptoms are unchanged. FELIX (generalized anxiety disorder) 08/15/2020 10/16/2020 Immunizations Immunization Administration Dates Next Due Influenza, Quadrivalent, Hig h Dose, Preservative Free, Intrr 12/26/2019 Pfizer SARS-CoV-2 Monovalent Vaccination (12+ Yrs) PURPLE 05/20/2020,04/23/2020 Tdap 10/31/2019 Surgical History Surgery Date Site/Laterality Comments OTHER SURGICAL HISTORY mastectomy- left TONSILLECTOMY tonsilectomy Medical History Medical History Date Comments Anxiety Depression Hyperlipidemia Anxiety and depression 09/11/2020 FELIX (generalized anxiety disorder) 08/15/2020 Major depressive disorder, recurrent episode, mo derate (HCC) 08/15/2020 Anger 08/28/2020 Family History Medical History Relation Name Comments Other Father nervous; Other Mother ocd; Relation Name Status Comments Father Mother Social History Tobacco Use Types Packs/Day Years [...] on file Legal Sex Female 7:31 PM ELECTROPHYSIOLOGY TECHNOLOGIST Gender Identity Not on file Sexual Orientation Not on file Obstetrics History Last Filed Vital Signs Vital Sign Reading Time Taken Comments Blood Pressure 112/66 07/18/2024 1:00 PM CDT Pulse 83 07/18/2024 1:00 PM CDT Temperature 37.2 C (99 F) 02/27/2022 11:33 AM ELECTROPHYSIOLOGY TECHNOLOGIST Respiratory Rate 17 02/27/2022 2:38 PM ELECTROPHYSIOLOGY TECHNOLOGIST Oxygen Saturation 96% 07/18/2024 1:00 PM CDT Inhaled Oxygen Concentration - - Weight 68.5 kg (151 lb) 07/18/2024 1:00 PM CDT Height 162.6 cm (5' 4) 07/18/2024 1:00 PM CDT Body Mass Index 25.92 07/18/2024 1:00 PM CDT Plan of Treatment Health Maintenance Due Date Last Done Comments Fall Risk Assessment 1936 Osteoporosis Screening-Bone Density Scan 1936 Hepatitis B Screening 1954 Pneumococcal vaccine 65+ (1 of 2 - PCV) 05/13/1955 Zoster Vaccine (1 of 2) 1986 Well Visit 65+ 2001 Depression Screening 02/06/2022 02/06/2021, 01/28/20 21 Covid-19 Vaccine (3 - season) 2024, 04/23/2020 Influenza Vaccine (#1) 2024 12/26/2019 DTaP/Tdap/Td Vaccine (2 - Td or Tdap) 10/30/2029 Goals Goal Patient Goal Type Associated Problems Recent Progress Patient-Stated? Author Short Term Goal 3F:Pt to being discharging planning to continue preparation for lower level of care, follow up with appointment, with PCP, New psychiatrist , Care Plan 3:Problems with aging Mari Conrad LCSW Note: Extended: Short Term Goal 3F:Pt to being discharging planning to continue preparation for lower level of care, follow up with appointment, with PCP, New psychiatrist. Pt to be discharged on 12/07/21. Additional Health Concerns Active Problems Noted Date Diagnosed Date 3:Problems with aging 12/03/2021 Note: Problem Statement: Pt has excessive fears and worry with spouse declining health. Due to symptoms of : _x_Depression __X_ Anxiety ___Psychosis ___Emotional Dysregulation ___Other: As Evidenced by: Low energy, poor concentration, difficulty making decisions, heart racing, panic feelings, fears, excessive worrying, obsessions, restlessness. Power Switchboard Operator Goal/Discharge Criteria: Pt will significantly reduce the overall frequency and intensity of her anxiety symptoms so that pt can improve daily functioning.Discharge will be assessed in 30 days 12/24/21. Pt discharge will follow up with her PCP, a new psychiatrist, and her and family for support and continued treatment. Pt may return to [facility] for a reassessment for services at that time. Pt will be given resources to further education for continued care. Treatment Modalities: Group Therapy/Individual Therapy. Diagnosis: F33.1 (ICD-10-CM) - Major depressive disorder, recurrent episode, moderate (HCC) F41.1 (ICD-10-CM) - FELIX (generalized anxiety disorder) F42.2 (ICD-10-CM) - Mixed obsessional thoughts and acts Insurance MEDICARE [employer] [place] GENERIC MEDICARE [employer] COMMERCIAL GENERIC Care Teams Modeling Director Relationship Specialty Start Date End Date Narayan Salamanca MD PCP - General 05/05/20
--- OUTSIDE RECORDS SUMMARY | 2024-12-21 12:46 | XMS_ITS | Encounter Summary ---
Author Organization [facility] Address [address] [place] [address] Care Team Providers Care Chore Tender Name Role Phone Bakari Parsons MD Primary Care Provider [phone] Encounter Details Date Type Department Care Team (Latest Contact Info) Description 06/30/2004 Outpatient Historical HIS [facility] GLYNN Rao, Jamaal Mansfield MD NO ADDRESS ON FILE MAMMOGRAPHIC MICROCALCIFICATION (Primary Dx) Social History Tobacco Use Types Packs/Day Years Used Date Smoking Tobacco: Never Assessed Comments Unknown Sex and Gender Information Value Date Recorded Sex Assigned at Not on file Legal Sex Female 4:14 AM FLYING TEACHER Gender Identity Not on file Sexual Orientation Not on file documented as of this encounter Plan of Treatment Not on file documented as of this encounter Visit Diagnoses Diagnosis Mammographic microcalcification- Primary documented in this encounter Care Teams Chore Tender Relationship Specialty Start Date End Date Bakari Parsons MD [address] [place] [id number] PCP - General Family Practice 10/12/10 documented as of this encounter
--- OUTSIDE RECORDS SUMMARY | 2024-12-21 12:46 | XMS_ITS | Encounter Summary ---
Author Organization [facility] Address [address] [place] [address] Care Team Providers Care Sponge Maker Name Role Phone Bakari Parsons MD Primary Care Provider [phone] Encounter Details Date Type Department Care Team (Latest Contact Info) Description 06/22/2004 Outpatient Historical HIS [facility] GLYNN Rao, Jamaal Mansfield MD NO ADDRESS ON FILE SCREENING MAMM-MAILG NEOPL-OTHER (Primary Dx) Social History Tobacco Use Types Packs/Day Years Used Date Smoking Tobacco: Never Assessed Comments Unknown Sex and Gender Information Value Date Recorded Sex Assigned at Not on file Legal Sex Female 4:14 AM FIRE CAPTAIN Gender Identity Not on file Sexual Orientation Not on file documented as of this encounter Plan of Treatment Not on file documented as of this encounter Visit Diagnoses Diagnosis Other screening mammogram- Primary documented in this encounter Care Teams Sponge Maker Relationship Specialty Start Date End Date Bakari Parsons MD [address] [place] [address] PCP - General Family Practice 10/12/10 documented as of this encounter
--- OUTSIDE RECORDS SUMMARY | 2024-12-21 12:46 | XMS_ITS | Clinical Summary ---
Author Organization [facility] Address [address] [place] [address] Phone Care Team Providers Care Product/Industry Consultant Name Role Phone Bakari Parsons MD Primary Care Provider [phone] Allergies No known active allergies Medications OMEGA-3 FATTY ACIDS (FISH OIL ORAL) Take by mouth. Active FLAXSEED OIL ORAL Take by mouth. Active MULTIVITAMINS WITH FLUORIDE (MULTI-VITAMIN ORAL) Take by mouth. Active citalopram (CELEXA) 20 mg Oral tablet Take 20 mg by mouth daily at bedtime. 1 1/2 pill. Active meclizine (ANTIVERT) 25 mg Oral tablet 10/06/2012 Active LORazepam (ATIVAN) 0.5 mg Oral tablet /. 11/08/2012 Active ERGOCALCIFEROL, VITAMIN D2, (VITAMIN D ORAL) Take by mouth. Active CALCIUM CARBONATE (TUMS ORAL) Take by mouth. Active Active Problems Patient Care Coordination No te Formatting of this note migh t be different from the original. 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 Family History Medical History Relation Name Comments Cancer Mother bladder Uterine Cancer Mother dx @ age 50's Breast Cancer Paternal Aunt 1 post menopa use Breast Cancer Paternal Aunt 2 post menopa use Relation Name Status Comments Father Mother Paternal Aunt 1 Paternal Aunt 2 Social History Tobacco Use Types Packs/Day Years Used Date Smoking Tobacco: Never Smokeless Tobacco: Never Tobacco Cessation:Counseling Given: No Alcohol Use Standard Drinks/Week Comments Yes 0 (1 standard drink = 0.6 oz pur e alcohol) rarely Comments No Sex and Gender Information Value Date Recorded Sex Assigned at Not on file Legal Sex Female 4:14 AM JEWEL INSERTER Gender Identity Not on file Sexual Orientation Not on file Occupation Industry Job Start Date Job End Date Not on file Not on file Not on file Not on file Last Filed Vital Signs Vital Sign Reading Time Taken Comments Blood Pressure 108/63 12/12/2013 11:17 AM CDT Pulse 70 12/12/2013 11:17 AM CDT Temperature 37.2 C (98.9 F) 07/07/2009 1:54 PM CDT Respiratory Rate 14 07/07/2009 1:54 PM CDT Oxygen Saturation - - Inhaled Oxygen Concentration - - Weight 68.9 kg (152 lb) 12/12/2013 11:17 AM CDT Height 165.1 cm (5' 5) 12/12/2013 11:17 AM CDT Body Mass Index 25.29 12/12/2013 11:17 AM CDT Plan of Treatment Health Maintenance Due Date Last Done Comments DTAP/TDAP/TD VACCINES (1 - Tdap) 05[birth year]13/1954 PNEUMOCOCCAL VACCINE 50+ YEARS (1 of 1 - PCV) 05/12/18 87 ZOSTER VACCINE (1 of 2) 1986 OSTEOPOROSIS SCREENING 2001 RSV VACCINE (60+ or ) (1 - 1-dose 75+ series) 05/13/2011 INFLUENZA VACCINE (#1) 2024 Insurance MEDICARE [facility] Care Teams Product/Industry Consultant Relationship Specialty Start Date End Date Bakari Parsons MD [address] [place] [address] PCP - General Family Practice 10/12/10
--- OUTSIDE RECORDS SUMMARY | 2024-12-21 12:46 | XMS_ITS | Encounter Summary ---
Author Organization [facility] Healthcare Address [address] [place] [address] Care Team Providers Care Silviculturist Name Role Phone Narayan Salamanca MD Primary Care Provider Encounter Details Date Type Department Care Team (Late st Contact Info) Description 12/31/2020 Telephone [facility] Senior Counseling [address] [place] [address] Lisa Christian EDUCATION ANALYST Social History Tobacco Use Types Packs/Day Years Used Date Smoking Tobacco: Never Smokeless Tobacco: Never Alcohol Use Standard Drinks/Week Comments No 0 (1 standard drink = 0.6 oz pur e alcohol) Comments Unknown Sex and Gender Information Value Date Recorded Sex Assigned at Not on file Legal Sex Female 7:31 PM SERVICE ARCHITECT Gender Identity Not on file Sexual Orientation Not on file documented as of this encounter Plan of Treatment Not on file documented as of this encounter Visit Diagnoses Not on filedocumented in this encounter Care Teams Silviculturist Relationship Specialty Start Date End Date Narayan Salamanca MD PCP - General 05/05/20 documented as of this encounter
--- OUTSIDE RECORDS SUMMARY | 2024-12-21 12:46 | XMS_ITS | Encounter Summary ---
Author Organization [facility] Address [address] [place] [address] Care Team Providers Care Cash Van Salesperson Name Role Phone Bakari Parsons MD Primary Care Provider [phone] Encounter Details Date Type Department Care Team (Latest Contact Info) Description 02/21/2002 Outpatient Historical HIS [facility] GLYNN Rao, Jamaal Mansfield MD NO ADDRESS ON FILE SCREENING MAMM-MAILG NEOPL-OTHER (Primary Dx) Social History Tobacco Use Types Packs/Day Years Used Date Smoking Tobacco: Never Assessed Comments Unknown Sex and Gender Information Value Date Recorded Sex Assigned at Not on file Legal Sex Female 4:14 AM POLICY WRITER SALES Gender Identity Not on file Sexual Orientation Not on file documented as of this encounter Plan of Treatment Not on file documented as of this encounter Visit Diagnoses Diagnosis Other screening mammogram- Primary documented in this encounter Care Teams Cash Van Salesperson Relationship Specialty Start Date End Date Bakari Parsons MD [address] [place] [id number] PCP - General Family Practice 10/12/10 documented as of this encounter
[2024-12-21 13:58] VITALS: BP 152/81; PULSE 98; RESP 20; O2SAT 96
[2024-12-21 14:00] VITALS: O2SAT 97
[2024-12-21 14:01] VITALS: BP 146/71; O2SAT 91
[2024-12-21 14:15] VITALS: O2SAT 95
[2024-12-21 14:17] VITALS: BP 139/80; O2SAT 95
--- NOTE | 2024-12-21 14:23 | ED.GENADULT ---
HPI - General Adult General Chief complaint: Fall Stated complaint: fall Time Seen by Provider: 12/21/24 13:54 History of Present Illness HPI narrative: 81-year-old female presents emergency department after being evaluated at urgent care. Patient did have a fall approximately 1.5 weeks ago and patient states that she struck the left side of her face and right leg. Patient does have extensive bruising over the right lower extremity does have some bruising around her left eye. Patient's primary complaint at this time is having some intermittent sharp shooting pain associated with the right face. Patient denies any change in vision. Patient states the pain is sharp in short lasting. Patient declined any medications for this. Related Data Home Medications ?Medication ?Instructions ?Recorded ?Confirmed ?Last Taken ?Type aspirin 81 mg tablet 81 mg PO DAILY 07/23/24 11/12/24 Unknown History sennosides 8.6 mg-docusate sodium 1 tab-cap PO QHS 07/23/24 11/12/24 Unknown History 50 mg capsule (Senna Plus) Allergies Allergy/AdvReac Type Severity Reaction Status Date / Time No Known Allergies Allergy Verified 12/21/24 11:37 Review of Systems Review of Systems: All systems reviewed & are unremarkable except as noted in HPI and below PMFSH Past Medical History Medical History Hair thinning Dysuria Gross hematuria BMI 28.0-28.9,adult Hot flashes Weight gain Cataract Lightheaded Imbalance Back pain FH: mastectomy Muscle cramping Impacted cerumen, left ear Vitamin D deficiency COPD (chronic obstructive pulmonary disease) Mild obstructive abnormality without change in diffusion capacity noted on PFTs July 2020 Memory loss, short term PVCs (premature ventricular contractions) Anxiety disorder, unspecified Fracture of toe of right foot Hypoglycemia Depression Anxiety Vertigo Surgical History Surgical History Hx of tympanostomy tubes (~2015) Right Family History Family History Father Stomach ulcer Mother OCD (obsessive compulsive disorder) Uterine cancer Bladder cancer Sibling Hyperlipemia Hypertension Heart disease Social History Social History Smoking status: Never smoker Second hand tobacco smoke exposure: No Alcohol intake: never Substance use: never Substance use type: does not use Do You Feel Safe in your Home?: Yes Lack of Transportation: No Lack of Food: Never True Current Housing: I Have Housing Concerned About Future Housing: No Difficulty Paying Gas/Electric Bills: No Difficulty Paying for Meds: No Currently Unemployed: No Education: Trade/Vocational Certificate Difficulty w/ Childcare or Family Care: No Living arrangements: with family Additional living arrangements comments: Occupation/Education: 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 HEAD: normocephalic, atraumatic. EYES: PERRLA/EOMI, conjunctivae clear. NOSE: Normal no drainage EARS:TMS clear with good light reflex. THROAT: Pharynx clear, no exudate. NECK: Supple. No adenopathy, no masses. RESPIRATORY: Airway patent, respirations nonlabored. Clear to auscultation bilaterally, no rales, rhonchi, wheezing. CARDIOVASCULAR: Regular rate and rhythm without murmurs rubs or gallops. ABDOMINAL: Soft, nontender, nondistended, normal bowel sounds MUSCULOSKELETAL: Ecchymosis and edema of right lower extremity NEURO: Alert. Cranial nerves II through XII intact. Good gait. Good coordination SKIN: Warm, dry. Normal Color Course Vital Signs Vital signs: Vital Signs Temperature 98.4 F 12/21/24 12:27 Pulse Rate 99 12/21/24 12:27 Respiratory Rate 16 12/21/24 12:27 Blood Pressure 149/77 H 12/21/24 12:27 Pulse Oximetry 99 12/21/24 12:27 Temperature 98.4 F 12/21/24 12:27 Pulse Rate 98 12/21/24 13:58 Respiratory Rate 20 12/21/24 13:58 Blood Pressure 139/80 12/21/24 14:17 Pulse Oximetry 95 12/21/24 14:17 Medical Decision Making MDM Narrative Medical decision making narrative: 81-year-old female presents emergency department for evaluation after having a ground level fall. Patient has negative CT head and CT her cervical spine. Right lower extremity was concerning for possible DVT due to the extensive edema and ecchymosis after the fall. Patient's initial complaint of right-sided facial pain does seem consistent with trigeminal neuralgia. Patient declined any medications for pain control. Ultrasound was negative for DVT. Do suspect patient has trigeminal neuralgia but patient once again declined any medications for pain control. Patient states she will have close follow-up with her primary care physician. All questions concerns were addressed. Differential Diagnosis Differential Diagnosis: DVT, hematoma, ecchymosis, subdural hematoma, subarachnoid hemorrhage, trigeminal neuralgia, occipital fracture Vital Signs Vital Signs: Vital Signs Temperature 98.4 F 12/21/24 12:27 Pulse Rate 99 12/21/24 12:27 Respiratory Rate 16 12/21/24 12:27 Blood Pressure 149/77 H 12/21/24 12:27 Pulse Oximetry 99 12/21/24 12:27 Temperature 98.4 F 12/21/24 12:27 Pulse Rate 98 12/21/24 13:58 Respiratory Rate 20 12/21/24 13:58 Blood Pressure 139/80 12/21/24 14:17 Pulse Oximetry 95 12/21/24 14:17 Imaging Data Radiologist's impression: Impressions Head CT 12/21/24 12:54 IMPRESSION: 1. Normal aging brain. Cervical Spine CT 12/21/24 12:56 IMPRESSION: 1. No fracture. 2. Severe cervical spondylosis. Venous Doppler Study 12/21/24 15:19 IMPRESSION: 1. No deep venous thrombosis in the right lower limb. 2. 4.3 x 1.5 x 4.3 similar fluid collection at the medial anterior right knee which given history of trauma most likely represents a small hematoma. Differential would include ganglion cyst or bursitis. Discharge Plan Discharge Clinical Impression: Trigeminal neuralgia, Head injury, Traumatic ecchymosis of right lower leg Patient Disposition: Home Condition: Stable Instructions: Antibiotic Form, Trigeminal Neuralgia (ED), Head Injury (ED) Additional Instructions: Have close follow-up with your primary care physician. If you have any worsening symptoms then please call or return to the emergency department. Patient Language: Upper Sorbian Prescriptions: No Action Senna Plus 8.6-50 mg capsule 1 tab-cap PO QHS aspirin 81 mg tablet 81 mg PO DAILY levalbuterol tartrate 45 mcg/actuation HFA aerosol inhaler 2 inh inhalation Q4H PRN (Reason: shortness of breath or wheezing) Qty: 15 2RF budesonide-formoterol [Symbicort] 160-4.5 mcg/actuation HFA aerosol inhaler 2 puff inhalation Q12H Qty: 10.2 2RF citalopram [Celexa] 20 mg tablet 20 mg PO DAILY Qty: 90 0RF meclizine 25 mg tablet 25 mg PO BID-TID Qty: 30 0RF Follow-up/Referrals: Narayan Salamanca MD [Primary Care Provider, Family Practice]
--- OUTSIDE RECORDS SUMMARY | 2024-12-21 15:19 | XMS_ITS | Encounter Summary ---
Author Organization [facility] Healthcare Address [address] [place] [address] Care Team Providers Care Maintenance Shop Laborer Name Role Phone Narayan Salamanca MD Primary Care Provider [phone] Encounter Details Date Type Department Care Team (Late st Contact Info) Description 08/14/2020 Telephone [facility] Senior Counseling [address] [place], [place] [phone] Mari Jarvis LCSW [address] [place], [place] [id number] Social History Tobacco Use Types Packs/Day Years Used Date Smoking Tobacco: Never Assessed Alcohol Use Standard Drinks/Week Comments No 0 (1 standard drink = 0.6 oz pur e alcohol) Comments Unknown Sex and Gender Information Value Date Recorded Sex Assigned at Not on file Legal Sex Female 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
--- OUTSIDE RECORDS SUMMARY | 2024-12-21 15:19 | XMS_ITS | Encounter Summary ---
Author Organization [facility] Address [address] [place] [address] Care Team Providers Care Bioinformatics Analyst Name Role Phone Bakari Parsons MD Primary Care Provider [phone] Encounter Details Date Type Department Care Team (Latest Contact Info) Description 02/21/2002 Outpatient Historical HIS [facility] [place] Rao, Jamaal Mansfield MD NO ADDRESS ON FILE SCREENING MAMM-MAILG NEOPL-OTHER (Primary Dx) Social History Tobacco Use Types Packs/Day Years Used Date Smoking Tobacco: Never Assessed Comments Unknown Sex and Gender Information Value Date Recorded Sex Assigned at Not on file Legal Sex Female 4:14 AM SERGEANT AT ARMS Gender Identity Not on file Sexual Orientation Not on file documented as of this encounter Plan of Treatment Not on file documented as of this encounter Visit Diagnoses Diagnosis Other screening mammogram- Primary documented in this encounter Care Teams Bioinformatics Analyst Relationship Specialty Start Date End Date Bakari Parsons MD [address] [place] [address] PCP - General Family Practice 10/12/10 documented as of this encounter
--- OUTSIDE RECORDS SUMMARY | 2024-12-21 15:19 | XMS_ITS | Clinical Summary ---
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 Fci Goal/Discharge Criteria: Pt will significantly reduce the overall frequency and intensity of her anxiety symptoms so that pt can improve daily functioning.Discharge will be assessed in 30 days 12/24/21. Pt discharge will follow up with her PCP, a new psychiatrist, and her and family for support and continued treatment. Pt may return to [facility] for a reassessment for services at that time. Pt will be given resources to further education for continued care. Treatment Modalities: Group Therapy/Individual Therapy. Diagnosis: F33.1 (ICD-10-CM) - Major depressive disorder, recurrent episode, moderate (HCC) F41.1 (ICD-10-CM) - FELIX (generalized anxiety disorder) F42.2 (ICD-10-CM) - Mixed obsessional thoughts and acts Insurance MEDICARE [employer] COMMERCIAL GENERIC MEDICARE RAILROAD COMMERCIAL GENERIC Care Teams Discharging Machine Operator Relationship Specialty Start Date End Date Narayan Salamanca MD PCP - General 05/05/20
--- OUTSIDE RECORDS SUMMARY | 2024-12-21 15:19 | XMS_ITS | Encounter Summary ---
Author Organization [facility] Address [address] [place] [address] Care Team Providers Care Water Manager Name Role Phone Bakari Parsons MD Primary Care Provider [phone] Encounter Details Date Type Department Care Team (Latest Contact Info) Description 12/19/2000 Outpatient Historical HIS [facility] [place] Rao, Jamaal Mansfield MD NO ADDRESS ON FILE Other screening mammogram (Primary Dx) Social History Tobacco Use Types Packs/Day Years Used Date Smoking Tobacco: Never Assessed Comments Unknown Sex and Gender Information Value Date Recorded Sex Assigned at Not on file Legal Sex Female 4:14 AM SERVICES PROGRAM MANAGER Gender Identity Not on file Sexual Orientation Not on file documented as of this encounter Plan of Treatment Not on file documented as of this encounter Visit Diagnoses Diagnosis Other screening mammogram- Primary documented in this encounter Care Teams Water Manager Relationship Specialty Start Date End Date Bakari Parsons MD [address] [place] [address] PCP - General Family Practice 10/12/10 documented as of this encounter
--- OUTSIDE RECORDS SUMMARY | 2024-12-21 15:19 | XMS_ITS | Encounter Summary ---
Author Organization [facility] Healthcare Address [address] [place] [address] Care Team Providers Care High School Music Director Name Role Phone Narayan Salamanca MD Primary Care Provider [phone] Encounter Details Date Type Department Care Team (Late st Contact Info) Description 09/10/2020 Telephone [facility] [address] [place], [place] [phone] Mari Jarvis LCSW [address] [place], [place] [phone] Social History Tobacco Use Types Packs/Day Years Used Date Smoking Tobacco: Never Assessed Alcohol Use Standard Drinks/Week Comments No 0 (1 standard drink = 0.6 oz pur e alcohol) Comments Unknown Sex and Gender Information Value Date Recorded Sex Assigned at Not on file Legal Sex Female 7:31 PM PRESTO LOG OPERATOR Gender Identity Not on file Sexual Orientation Not on file documented as of this encounter Plan of Treatment Not on file documented as of this encounter Visit Diagnoses Not on filedocumented in this encounter Care Teams High School Music Director Relationship Specialty Start Date End Date Narayan Salamanca MD PCP - General 05/05/20 documented as of this encounter
--- OUTSIDE RECORDS SUMMARY | 2024-12-21 15:19 | XMS_ITS | Encounter Summary ---
Author Organization [facility] Healthcare Address [address] [place] [address] Care Team Providers Care Cigarette Making Machine Operator Name Role Phone Narayan Salamanca MD Primary Care Provider [phone] Encounter Details Date Type Department Care Team (Late st Contact Info) Description 09/17/2020 Telephone [facility] Senior Counseling [address] [place], [place] [phone] Mari Jarvis LCSW [address] [place], [place] [phone] Social History Tobacco Use Types Packs/Day Years Used Date Smoking Tobacco: Never Smokeless Tobacco: Never Alcohol Use Standard Drinks/Week Comments No 0 (1 standard drink = 0.6 oz pur e alcohol) Comments Unknown Sex and Gender Information Value Date Recorded Sex Assigned at Not on file Legal Sex Female 7:31 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
--- OUTSIDE RECORDS SUMMARY | 2024-12-21 15:19 | XMS_ITS | Patient Health Record ---
Author Organization [facility] Address [address] [place] [address] Care Team Providers Care Company Driver Name Role Phone Sharath Antony Unavailable [phone] Reason For Referral No Information Medications Medication SIG (Take, Route, Frequency, Duration) Notes Start Date End Date Status ProAir HFA 108 (90 Base) MCG/ACT Aerosol Solution Inhalation 07/28/2020 Active ALPRAZolam 0.25 MG Tablet Oral 07/28/2020 Active busPIRone HCl 5 MG Tablet Oral 07/28/2020 Active CHLORTABS *Reorder from Holidog for eRx and Interaction Alerts* 07/28/2020 Active Symbicort 160-4.5 MCG/ACT Aerosol Inhalation 07/28/2020 Active Montelukast Sodium 10 MG Tablet Oral 07/28/2020 Active Immunizations Vaccine Route Administration Date Status Comme nts Influenza, high-dose seasona l, quadrivalent, preservative free >65 yrs Unknown 12/26/2019 Administered Pfizer Biontech Covid-19 Vac cine 2nd dose Unknown 04/23/2020 Administered Pfizer Biontech Covid-19 Vac cine 2nd dose Unknown 05/20/2020 Administered Tdap Unknown 10/31/2019 Administered Social History Social History Additional Details Category Social Info Options Details Migrated Social History Migrated Social History Alcohol Intake: None 06/04/2020,Tobacco Years: Never smoker 06/04/2020 Plan Of Treatment No Information Insurance Providers Payer Name Payer Address Payer Phone Subscriber Number Group Number Insured Name Patient Relationship to Insured Coverage Start Date Coverage End Date [place] - Medicare-[employer]road [facility] Board Medicare [address] [address] [place] [address] [id number] MISSY CUMMINGS Self - patient is the insured [employer] Life Insurance Medicare Supplement [address] [place] [address] [id number] MISSY CUMMINGS Self - patient is the insured
--- OUTSIDE RECORDS SUMMARY | 2024-12-21 15:19 | XMS_ITS | Encounter Summary ---
Author Organization [facility] Address [address] [place] [address] Care Team Providers Care Business Support Assistant Name Role Phone Bakari Parsons MD Primary Care Provider [phone] Encounter Details Date Type Department Care Team (Latest Contact Info) Description 05/14/2003 Outpatient Historical HIS [facility] [place] Rao, Jamaal Mansfield MD NO ADDRESS ON FILE SCREENING MAMM-MAILG NEOPL-OTHER (Primary Dx) Social History Tobacco Use Types Packs/Day Years Used Date Smoking Tobacco: Never Assessed Comments Unknown Sex and Gender Information Value Date Recorded Sex Assigned at Not on file Legal Sex Female 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
--- OUTSIDE RECORDS SUMMARY | 2024-12-21 15:19 | XMS_ITS | Clinical Summary ---
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
--- OUTSIDE RECORDS SUMMARY | 2024-12-21 15:19 | XMS_ITS | Encounter Summary ---
Author Organization [facility] Address [address] [place] [address] Care Team Providers Care Exhibit Preparator Name Role Phone Bakari Parsons MD Primary Care Provider [phone] Encounter Details Date Type Department Care Team (Latest Contact Info) Description 06/22/2004 Outpatient Historical HIS [facility] [place] Rao, Jamaal Mansfield MD NO ADDRESS ON FILE SCREENING MAMM-MAILG NEOPL-OTHER (Primary Dx) Social History Tobacco Use Types Packs/Day Years Used Date Smoking Tobacco: Never Assessed Comments Unknown Sex and Gender Information Value Date Recorded Sex Assigned at Not on file Legal Sex Female 4:14 AM VALIDATION LEADER Gender Identity Not on file Sexual Orientation Not on file documented as of this encounter Plan of Treatment Not on file documented as of this encounter Visit Diagnoses Diagnosis Other screening mammogram- Primary documented in this encounter Care Teams Exhibit Preparator Relationship Specialty Start Date End Date Bakari Parsons MD [address] [place] [address] PCP - General Family Practice 10/12/10 documented as of this encounter
--- OUTSIDE RECORDS SUMMARY | 2024-12-21 15:19 | XMS_ITS | Encounter Summary ---
Author Organization [facility] Address [address] [place] [address] Care Team Providers Care Rolfer Name Role Phone Bakari Parsons MD Primary Care Provider [phone] Encounter Details Date Type Department Care Team (Latest Contact Info) Description 06/30/2004 Outpatient Historical HIS [facility] [place] Rao, Jamaal Mansfield MD NO ADDRESS ON FILE MAMMOGRAPHIC MICROCALCIFICATION (Primary Dx) Social History Tobacco Use Types Packs/Day Years Used Date Smoking Tobacco: Never Assessed Comments Unknown Sex and Gender Information Value Date Recorded Sex Assigned at Not on file Legal Sex Female 4:14 AM BUS DRIVER 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
--- OUTSIDE RECORDS SUMMARY | 2024-12-21 15:19 | XMS_ITS | Clinical Summary ---
Author Organization [facility] Address [address] [place] [address] Care Team Providers Care Engineering Patternmaker Name Role Phone Bakari Parsons MD Primary Care Provider [phone] Family History Medical History Relation Comments Breast [...] patient's age to complete this topic Insurance [employer] MEDICARE GENERIC - COMMERCIAL Care Teams Engineering Patternmaker Relationship Specialty Start Date End Date Bakari Parsons MD [address] [place] [id number] PCP - General 09/30/16
--- OUTSIDE RECORDS SUMMARY | 2024-12-21 15:19 | XMS_ITS | Encounter Summary ---
Author Organization [facility] Healthcare Address [address] [place] [address] Care Team Providers Care Brand Activation Manager Name Role Phone Narayan Salamanca MD Primary Care Provider [phone] Reason for Visit * Reason Onset Date Comments Appointment 09/03/2020 Encounter Details Date Type Department Care Team (Late st Contact Info) Description 09/03/[address] 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
--- OUTSIDE RECORDS SUMMARY | 2024-12-21 15:19 | XMS_ITS | Encounter Summary ---
Author Organization [facility] Healthcare Address [address] [place] [address] Care Team Providers Care Accounts Executive Name Role Phone Narayan Salamanca MD Primary Care Provider [phone] Encounter Details Date Type Department Care Team (Late st Contact Info) Description 12/31/2020 Telephone [facility] [address] [place] [address] [facility] Social History Tobacco Use Types Packs/Day Years Used Date Smoking Tobacco: Never Smokeless Tobacco: Never Alcohol Use Standard Drinks/Week Comments No 0 (1 standard drink = 0.6 oz pur e alcohol) Comments Unknown Sex and Gender Information Value Date Recorded Sex Assigned at Not on file Legal Sex Female 7:31 PM [employer] Gender Identity Not on file Sexual Orientation Not on file documented as of this encounter Plan of Treatment Not on file documented as of this encounter Visit Diagnoses Not on filedocumented in this encounter Care Teams Accounts Executive Relationship Specialty Start Date End Date Narayan Salamanca MD PCP - General 05/05/20 documented as of this encounter
--- OUTSIDE RECORDS SUMMARY | 2024-12-21 15:19 | XMS_ITS | Encounter Summary ---
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
== END 2024-12-21 16:00 | disposition home or self-care (01) ==
PROVIDERS: Emergency Provider Emergency Medicine; PCP Family Medicine
DX: G50.0 Trigeminal neuralgia (principal); S09.90XA Unspecified injury of head, initial encounter; S80.11XA Contusion of right lower leg, initial encounter; M79.661 Pain in right lower leg; W19.XXXA Unspecified fall, initial encounter
CPT/HCPCS: 70450; 72125; 93971; 99284